=== PATIENT | female | born 1975 | race Caucasian/White ===

== ENCOUNTER 2023-09-27 10:14 | Outpatient (REF) | payer BC, SELFPAY ==
[2023-09-27 15:00] LABS: Estimated Average Glucose 105 mg/dL; Hemoglobin A1c % 5.3 % (<6.0)
[2023-09-27 15:09] LABS: Cholesterol 306 mg/dL (<200); HDL Cholesterol 34 mg/dL (>40); Triglycerides 651 mg/dL (<150)
[2023-09-27 15:24] LABS: TSH reflex Free T4 0.72 uIU/mL (0.32-4.0); Vitamin D 25-OH Total 44.6 ng/mL (>30)
== END 2023-09-27 10:15 | disposition home or self-care (01) ==
LOC: HO.CHCLDS 10:14
PROVIDERS: Visit Provider Pediatrics
DX: D64.9 Anemia, unspecified (principal); M06.09 Rheumatoid arthritis without rheumatoid factor, multiple sites; E78.2 Mixed hyperlipidemia; R63.5 Abnormal weight gain
CPT/HCPCS: 36415; 80061; 82306; 83036; 84443

== ENCOUNTER 2024-02-09 11:42 | Outpatient (REF) | payer BC, SELFPAY ==
[2024-02-09 14:57] LABS: Prothrombin Time 12.7 SEC (11.1-13.3)
== END 2024-02-09 11:43 | disposition home or self-care (01) ==
LOC: HO.CHCLDS 11:42
PROVIDERS: Visit Provider Pediatrics
DX: Z01.812 Encounter for preprocedural laboratory examination (principal)
CPT/HCPCS: 36415; 85610

== ENCOUNTER 2024-12-28 10:09 | Outpatient (REF) | payer BC, SELFPAY ==
--- OUTSIDE RECORDS SUMMARY | 2024-12-28 10:59 | XMS_ITS | Data Portability ---
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 Plan of Treatment Reminders Order Date Submit Date Provider Last Modified By Organization Details Last Modified Time Details Appointments ANNUAL WINDOW CASER 15 2024 02:45P M Kassandra Mitchell MD Not available Not available Not available Lab pap, IG + HPV 2023 024 [facility], [address] [place] [address], [id number] 07/30/2024 08:55:00 pap, IG + HPV 2023 024 [email or web address] [facility], [address] [place] [address], [id number] 02/02/2024 08:14:08 surgical pathology study - ECC,cervi joanne bx @ 12:00 and 3:00 2022 023 [email or web address] [facility], [address] [place] [address], [id number] 07/07/2023 08:52:10 test, urine 2022 023 In-Office Order, Internal Use Only DO Not Attach Compendium DO Not Attach Compendium, Do Not Delete/merge, [id number] 06/30/2023 12:44:10 surgical pathology study - EBx 2022 023 [facility] Lab, [address] [place] [address], [id number] 07/01/2023 17:40:29 Referral None recorded. Procedures None recorded. Surgeries None recorded. Imaging None recorded. Medication Orders None recorded. Patient TargetsNo targets recorded. Patient Instructions Encounter Date Encounter Id Patient Instructions Last Modified By Organization Details Last Modified Time 01/10/2024 [id number] tips to help you stay healthy Not available 01/10/2024 13:03:43 [facility] screening completed and reviewed with patient. Negative findings. Not available 01/10/2024 13:03:16 02/10/2024 [id number] Behavioral healt h screening completed and reviewed with patient. Negative findings. [email or web address] Not available 02/10/2024 09:36:51 Reason for Referral None Reported. Results Created Date Observation Date Name Description Value Unit Range Abnormal Flag Note LastModifiedBy Organization Detail LastModifiedTime 06/20/2006/20/2023 HPV MRNA E6/E7 HPV MRNA E6/E7 Negati ve negati ve APTIM A HPV assay detec ts 14 high risk HPV types (HPV 16,18 ,31,3 3,35, 39,45 ,51,5 2,56, 58,59 ,66,6 8). The assay is FDA appro elizabeth for testi ng ThinP rep liqui d Pap vials but not FDA appro elizabeth for detec ting HPV in SureP ath liqui d Pap speci mens. In-ho use valid ation has shown the assay can detec t all [facility] types [facility] Not Available [facility] [address] [place] [address], [id number] 06/24/2023 10:45:18 06/20/2006/20/2023 THINP REP PAP TEST (IMAG ER), HPV SCREE N, REFLE X HPV 16,18 /45 report Report abnormal Final Gynec ologi joanne Cytol ogy Repor t ----- ----- ----- ----- ----- ----- ----- ----- ----- ----- ----- ----- ThinP rep Pap Test, HPV Scree n, Refle x HPV Genot ype SPECI MEN ADEQU ACY: SATIS FACTO RY FOR EVALU ATION ; ENDOC ERVIC AL/TR ANSFO RMATI ON ZONE COMPO NENT PRESE NT. INTER PRETA TION: ATYPI JOANNE GLAND ULAR CELLS Tubal metap lasia Elect paul Lopez d: Megha Hines [place] ([facility] ) Elect paul Lopez d: Kayla Cooper MD Elect paul Lopez d: LEEANNA LARSEN RET, MD ----- ----- ----- ----- ----- ----- ----- ----- ----- ----- ----- ----- CLINI JOANNE INFOR MATIO N: LMP: 06/02 Clini joanne Histo ry: RTN Biops y Date: NG Speci men Sourc e: Cervi x, Endoc ervix Previ ous Pap Date: NG HPV RESUL TS: HPV mRNA E6/E7 07392 [id number] Appro elizabeth: 06/22 Negat joel REF RANGE : Negat joel CPT Codes : 40826 , 58545 ICD Codes : N93.9 Not Available [facility] [address] [place], [address] 06/24/2023 10:45:25 06/20/2006/20/2023 TISSU E report Report Final Patho logy Repor t ----- ----- ----- ----- ----- ----- ----- ----- ----- ----- ----- ----- FINAL DIAGN OSIS: CERVI JOANNE BIOPS Y: - FRAGM ENTS OF ENDOC ERVIC AL AND SQUAM OUS EPITH ELIUM CONTA INING CHRON IC INFLA MMATI ON WITH REACT JOEL BYRNES E AND FOCAL TUBAL METAP LASIA . - NEGAT JOEL FOR DYSPL ELISA OR NEOPL ELISA. Comme nt: The findi ngs corre late with the concu rrent Pap smear , [id number], inter prete d as atypi joanne gland ular cells with tubal metap lasia . The react joel/m etapl astic cells in the curre nt biops y could expla in the atypi joanne cells seen in that Pap smear . Clini joanne follo wup recom erik sylvester. The case is revie wed by Dr. Leeanna sylvester, who concu rs. Elect paul sylvester: Kayla Cooper MD Elect paul Lopez d: LEEANNA LARSEN RET, MD ----- ----- ----- ----- ----- ----- ----- ----- ----- ----- ----- ----- Clini joanne Diagn osis and Histo ry: Abnor mal uteri ne bleed ing Gross Descr iptio n: Conta iner label ed with the patie nt's name ESCOBAR RON noted CXBX. Speci men is recei elizabeth in forma allyn and consi sts of irreg ular tissu e fragm ents admix ed with mucus and blood measu ring 0.13 cc which are filte red and submi tted in toto in 1 casse tte(s ) label ed 1A. The speci men may not survi ve proce ssing . CPT Codes : 51775 ICD Codes : N93.9 Not Available [facility] [address] [place], [address] 06/24/2023 16:01:38 06/20/2006/20/2023 pregn josé miguel test, urine Result negati ve Not Available In-Office Order Internal Use Only DO Not Attach Compendium DO Not Attach Compendium, Do Not Delete/merge, [id number] 06/17/2023 08:16:55 06/30/2006/30/2023 TISSU E report Report Final Patho logy Repor t ----- ----- ----- ----- ----- ----- ----- ----- ----- ----- ----- ----- FINAL DIAGN OSIS: #1- ENDOC ERVIC AL CURET TINGS : - SCANT FRAGM ENTS OF BENIG N ENDOC ERVIC AL GLAND ULAR EPITH ELIUM WITH REACT JOEL ATYPI A AND TUBAL METAP LASIA , NEGAT JOEL FOR DYSPL ELISA. #2- CERVI JOANNE BIOPS Y AT 12 [place] CK: - SCANT FRAGM ENTS OF BENIG N ENDOC ERVIC AL GLAND ULAR EPITH ELIUM WITH REACT JOEL ATYPI A AND TUBAL METAP LASIA , NEGAT JOEL FOR DYSPL ELISA. #3- CERVI JOANNE BIOPS Y AT 3 [address] CK: - FOCAL LOW GRADE SQUAM OUS INTRA EPITH ELIAL LESIO N/KIAH 1. #4- ENDOM ETRIA L BIOPS Y: - BENIG N ENDOC ERVIC AL MUCOS A WITH REACT JOEL BYRNES ES AND TUBAL METAP LASIA . - NO ENDOM ETRIU M PRESSheyla NT. Elect paul Lopez d: ART GONSALEZ SA, MD ----- ----- ----- ----- ----- ----- ----- ----- ----- ----- ----- ----- Clini joanne Diagn osis and Histo ry: COLPO SCOPY ; ECC,C ERVIC AL BX @ 12:00 AND 3:00 ; COLPO SCOPY ; EMBX Abnor mal vagin al pap smear Gross Descr iptio n: #1- Conta iner label ed with the patie nt's name RON DEAN noted ECC. Speci men is recei elizabeth in forma allyn and consi sts of irreg ular tissu e fragm ents admix ed with mucus and blood measu ring 0.1 cc which are filte red and submi tted in toto in 1 casse tte(s ) label ed 1A. The speci men may not survi ve proce ssing . #2- Conta iner label ed with the patie nt's name RON DEAN noted CXBX @12:0 0- COLPO . Speci men is recei elizabeth in forma allyn and consi sts of 1 piece of soft paz tissu e fragm ent measu ring 0.1 x 0.05 x 0.05 cm which is submi tted in toto in 1 casse tte(s ) label ed 2A. The speci men may not survi ve proce ssing . #3- Conta iner label ed with the patie nt's name NYDIA DEANI A noted CXBX @3:00 - COLPO . Speci men is recei elizabeth in forma allyn and consi sts of 2 piece s of soft paz tissu e fragm ents measu ring 0.4 x 0.3 x 0.2 cm and 0.2 x 0.1 x 0.1 cm which are submi tted in toto in 1 casse tte(s ) label ed 3A. #4- Conta iner label ed with the patie nt's name MISAEL Haji TRICI A noted EMB. Speci men is recei elizabeth in forma allyn and consi sts of irreg ular tissu e fragm ents admix ed with mucus and blood measu ring 0.5 cc which are filte red and submi tted in toto in 1 casse tte(s ) label ed 4A. CPT Codes : #1- 89216 #2- 19391 #3- 05874 #4- 66120 ICD Codes : #1- R87.6 29 #2- R87.6 29 #3- R87.6 29 #4- R87.6 29 Not Available [facility] [address] [place], [address] 07/01/2023 17:40:29 06/30/20 23 06/30/2023 pregn josé miguel test, urine Result negati ve Not Available In-Office Order Internal Use Only DO Not Attach Compendium DO Not Attach Compendium, Do Not Delete/merge, [id number] 06/30/2023 10:46:42 07/23/20 24 07/23/2024 THINP REP PAP TEST (IMAG ER), HPV SCREE N, REFLE X HPV 16,18 /45 report Report Final Gynec ologi joanne Cytol ogy Repor t ----- ----- ----- ----- ----- ----- ----- ----- ----- ----- ----- ----- ThinP rep Pap Test, HPV Scree n, Refle x HPV Genot ype SPECI MEN ADEQU ACY: SATIS FACTO RY FOR EVALU ATION ; ENDOC ERVIC AL/TR ANSFO RMATI ON ZONE COMPO NENT PRESE NT. INTER PRETA TION: NEGAT JOEL FOR INTRA EPITH ELIAL DUCJARAD Metz OR JATIN AMADOR . Elect paul Lopez d: Marquise Espinal CT ([facility] ) Elect paul Lopez d: Oliver Alvarez, [place]( [facility]) ----- ----- ----- ----- ----- ----- ----- ----- ----- ----- ----- ----- CLINI JOANNE INFOR MATIO N: LMP: NG Clini joanne Histo ry: NG Biops y Date: NG Speci men Sourc e: Cervi x, Endoc ervix Previ ous Pap Date: NG HPV RESUL TS: HPV mRNA E6/E7 04976 96084 Appro elizabeth: 07/25 Negat joel REF RANGE : Negat joel CPT Codes : 20943 ICD Codes : R87.6 10 Not Available [facility] [address] [place], [address] 07/30/2024 08:55:00 07/23/20 24 07/23/2024 HPV MRNA E6/E7 HPV MRNA E6/E7 Negati ve negati ve APTIM A HPV assay detec ts 14 high risk HPV types (HPV 16,18 ,31,3 3,35, 39,45 ,51,5 2,56, 58,59 ,66,6 8). The assay is FDA appro elizabeth for testi ng ThinP rep liqui d Pap vials but not FDA appro elizabeth for detec ting HPV in SureP ath liqui d Pap speci mens. In-ho use valid ation has shown the assay can detec t all HPV types from this sourc e Not Available [facility] [address] [place], [address] 07/30/2024 08:55:04 06/28/20 23 06/28/2023 US, trans vagin al RAD [email or web address] [facility] [address], [place], [address], 06/29/2023 10:16:33 01/13/20 24 01/13/2024 MAMMO , scree sulema, digit al, bilat eral, w/ CAD No observ ation record ed. [email or web address] [facility] [address], [place], [address], 01/17/2024 09:33:47 01/26/20 24 01/26/2024 MAMMO , diagn ostic , digit al, unila teral No observ ation record ed. [email or web address] [facility] [address], [place], [address], 01/30/2024 11:18:13 08/06/20 24 08/06/2021 MAMMO , diagn ostic , tomos ynthe sis, unila teral No observ ation record ed. [facility] [address], [place], [address], 08/07/2024 01:36:07 09/06/20 24 08/06/2024 MAMMO , diagn ostic , digit al, unila teral No observ ation record ed. [email or web address] [address], [place], [address], 09/13/2024 11:39:42 Result Notes None recorded. Problems Name Problem SNOMED Code Status Onset Date Resolution Date Notes Provider Name and Address Organization Details Recorded Time Asthma 030689568 Active 018 Ann Peña null, [place] - [facility] 8 14:33:59 Acid reflux 095614206 Active 018 Ann Peña null, [place] - [facility] 8 14:34:06 Anxiety 14590894 Active 018 Ann Peña null, [place] - [facility] 8 14:34:17 Anemia 422406537 Active 018 Ann Peña null, [place] [facility] 8 14:34:52 Problem Notes None recorded. Procedures Surgical History Date Name Laterality Status Provider Name and Address Organization Details Recorded Time 06/30/20 Colposcopy Procedure Note completed KASSANDRA MITCHELL MD [address] [facility], [place], [address], [facility] 06/30/2023 11:20:12 06/30/20 Endometrial Biopsy Procedure Note completed KASSANDRA MITCHELL MD [address] [facility], [place], [address], [facility] 06/30/2023 11:21:21 06/20/20 Cervical Polypectomy Procedure Note completed KASSANDRA MITCHELL MD [address] [facility], [place], [address], [facility] 06/20/2023 21:42:53 06/20/20 Date of Last Pap Smear completed Sanjiv Norman [facility] 06/20/2023 13:15:20 extraction of wisdom tooth completed KASSANDRA MITCHELL MD [address] [facility], [place], [address], [facility] 06/20/2023 21:30:45 Hysteroscopy completed KASSANDRA MITCHELL MD [address] [facility], [address] [place] [address], [place], [address], [facility] 07/23/2024 15:01:50 Imaging Results Imaging Date Name Status LastModified by Organization Details LastModified Time 06/28/2023 US, transvaginal completed [address] [facility] [address], [place], [address], 06/29/2023 10:16:33 01/13/2024 MAMMO, screening, digital, bilateral, w/ CAD completed [address] [facility] [address], [address], 01/17/2024 09:33:47 01/26/2024 MAMMO, diagnostic, digital, unilateral completed [email or web address] [facility] [address], [place], [address], 01/30/2024 11:18:13 08/06/2021 MAMMO, diagnostic, tomosynthesis, unilateral completed [facility] [address], [place], [address], 08/07/2024 01:36:07 08/06/2024 MAMMO, diagnostic, digital, unilateral completed [email or web address] [facility] [address], [place], [address], 09/13/2024 11:39:42 Procedure Notes None recorded. Medical Equipment None Reported. Allergies Allergen ID Allergen Name Allergen Category Reaction Reaction Severity Criticality Documentation Date Start Date Code Code System Note Provider Name and Address Organization Details Recorded Time 6789853 Product containin g penicilli n (product) medicatio n Not available Not available Not available 05/04/2018 60125 8001 SNOMED Ann Peña null, [facility] 8 14:31:32 6509683 wheat gluten extract food Not available Not available Not available 05/04/2018 94211 81 RxNorm Ann Peña null, [facility] 8 14:31:38 3598340 nut - unspecifi ed food Not available Not available Not available 05/04/2018 36936 UNK Ann Peña null, [facility] 8 14:31:48 9759502 tomato allergeni c extract food Not available Not available Not available 05/04/2018 27504 9 RxNorm Ann Peña null, [facility] 8 14:31:53 3700237 amlodipin e medicatio n Not available Not available Not available 06/20/2023 21767 RxNorm Sanjiv Norman null, [facility] 3 13:13:03 Medications Name Sig Start Date Stop Date Status Note LastModified by Organization Details LastModified Time clindamycin HCl 300 mg capsule 05/04 completed Not Available Not Available Not Available benzonatate 200 mg capsule TAKE 1 CAPSULE BY MOUTH THREE TIMES A DAY NEEDED FOR COUGH 02/09 completed Not Available Not Available Not Available prednisone 20 mg tablet TAKE 1 TABLET BY MOUTH 2 TIMES A DAY. WITH FOOD. active Not Available Not Available No t Available leflunomide 20 mg tablet Take 1 tablet every day by oral route. active Not Available Not Available No t Available dexamethaso ne 4 mg tablet 05/04 completed Not Available Not Available Not Available lisinopril 10 mg tablet Take 1 tablet every day by oral route. active Not Available Not Available No t Available Provera 10 mg tablet Take 1 tablet every day by oral route for 10 days. 2023 active Not Available Not Available Not Avai lable albuterol sulfate HFA 90 mcg/actuati on aerosol inhaler INHALE 2 PUFFS EVERY 4 HOURS NEEDED FOR WHEEZING OR SHORTNESS OF BREATH 02/09 completed Not Available Not Available Not Available rosuvastati n 10 mg tablet active Not Available Not Available Not Available rosuvastati n 20 mg tablet Take 1 mg every day by oral route. 02/09 completed Not Available Not Available Not Available cyanocobala min (vitamin B-12) 06/17 completed Not Available Not Available Not Available Vitamin D3 06/17 completed Not Available Not Available Not Available multivitami n 06/17 completed Not Available Not Available Not Available Flonase Allergy Relief 06/17 completed Not Available Not Available Not Available Vitals Date Recorded Body height Body mass index (BMI) Body weight Systolic blood pressure Diastolic blood pressure Provider Name and Address Organization Details Last Updated DateTime 06/30/2023 161.29 cm 31 kg/m2 42244.44 g 140 mm[Hg] 98 mm[Hg] Kayla CISSE - [facility] 10:41:38 Date Recorded Body height Body mass index (BMI) Body weight Systolic blood pressure Diastolic blood pressure Provider Name and Address Organization Details Last Updated DateTime 01/10/2024 161.29 cm 31.6 kg/m2 56517.22 g 110 mm[Hg] 82 mm[Hg] Kayla Vaughney [facility] 4 08:32:10 Date Recorded Body height Body mass index (BMI) Body weight Systolic blood pressure Diastolic blood pressure Provider Name and Address Organization Details Last Updated DateTime 02/10/2024 161.29 cm 32.3 kg/m2 41688.59 g 118 mm[Hg] 72 mm[Hg] Sanjiv Norman [facility] 4 14:36:51 Date Recorded Body height Body mass index (BMI) Body weight Systolic blood pressure Diastolic blood pressure Provider Name and Address Organization Details Last Updated DateTime 03/06/2024 161.29 cm 31.4 kg/m2 76433.63 g 120 mm[Hg] 76 mm[Hg] Kayla Homero [facility] 4 13:25:27 Date Recorded Body height Body mass index (BMI) Body weight Systolic blood pressure Diastolic blood pressure Provider Name and Address Organization Details Last Updated DateTime 07/23/2024 161.29 cm 33.9 kg/m2 62567.72 g 122 mm[Hg] 74 mm[Hg] Rush Motley [facility] 4 14:30:41 Social History Question Answer Notes LastModified by Organization Details LastModified Time Tobacco Smoking Status Never Smoker Ann saez, [facility] 05/04/2018 14:36:38 What Is Your Level Of Alcohol Consumption? Occasional Information not available 05/04/2018 Is Blood Transfusion Acceptable In An Emergency? No Unable To Accept Transfustions - JW Information not available 05/04/2018 What Is Your Occupation? [employer] Information not available 05/04/2018 Have There Been Any Changes To Your Family Or Social Situation? No Information not available 05/04/2018 Do You Have Any Children? Yes Information not available 05/04/2018 Does Your Partner Physically Hurt You Or Threaten To Hurt You? No Information not available 05/04/2018 Has Your Partner Forced You To Have Sex Or Perform Sex Acts When You Did Not Want To? No Information not available 05/04/2018 Does Your Partner Insult, Scream At Or Talk Down To You? No Information not available 05/04/2018 Does Your Partner Control You Or Any Part Of Your Life? No Information not available 05/04/2018 Are You Afraid Of Your Partner? No Information not available 05/04/2018 Drug Use? No Information not available 05/04/2018 Do You Feel Safe At Home? Yes Information not available 05/04/2018 What Was The Date Of Your Most Recent Tobacco Screening? 06/20/2023 Information not available 06/20/2023 How Many Children Do You Have? 2 Information not available 05/04/2018 Do You Use Protection During Sex? Always Information not available 05/04/2018 Are You Sexually Active? Yes Information not available 06/20/2023 How Much Tobacco Do You Smoke? No Information not available 05/04/2018 Sex: Unknown Functional Status Question Answer Note LastModified by Organizat ion Details LastModified Time What is your exercise level? Moderate 3-5 days a week Information not available 05/04/2018 Mental Status Question Answer Note LastModified by Organization D etails LastModified Time Do you have difficulty concentrating, remembering or making decisions? No Information no t available 05/04/2018 Family History Relationship Description Onset Age of this Age Resolved Age Notes LastModified by Organization Details LastModified Time Paternal Grandmother Malignant tumor of colon Not available 2017 14:35:49 Paternal Grandmother Malignant tumor of soft tissue of hip Not available 2017 14:36:01 Paternal Grandmother Atrial fibrillation Not available 18:17:43 Paternal Grandmother Coronary arterioscler osis s/p Triple bypass Not available 05/05/2018 18:18:15 Mother Diabetes mellitus Not available 2017 14:36:09 Mother Myocardial infarction h/o [place] x 2 Not available 06/20/2023 21:31:16 Mother Atrial fibrillation Not available 20:12:21 Father Atrial fibrillation Not available 14:36:22 Maternal Grandmother Atrial fibrillation Not available 18:17:38 Maternal Grandmother Diabetes mellitus Not available 05/05 18:18:24 Maternal Grandmother Congenital heart disease Not available 05/05 18:18:38 Maternal Grandfather Hypertensive disorder Not available 05/05 18:19:06 Maternal Grandfather Cerebrovascu lar accident Not available 18:19:17 Paternal Grandfather Malignant tumor of prostate Not available 05/05 18:19:53 Unspecified Relation Malignant tumor of breast M Cousin , female Not available 05/05/2018 18:20:22 Medical History Condition Response Other N *No Diseases or Conditions N Blood clots N Breast Cancer N Benign breast disease N Colon cancer N Lung Disease N Depression N Defects or Inherited Disease N Anesthesia Complications N Headaches/Migraines Y Have you ever been on isolation N Anxiety Disorder Y Arthritis Y HSV N Infertility N Abnormal pap Y Interstitial Cystitis N Acid Reflux (GERD) Y Cancer N Stroke N Endometriosis N Fibromyalgia N Spina Bifida N HIV N Heart Problems N Sexual Dysfunction N Autoimmune disorder N Kidney or Bladder Problems Y Thyroid Problems Y GI Problems N Eating Disorder N Anemia Y Multiple Sclerosis N Psychiatric Illness N Ovarian Cancer N Diabetes N Blood Transfusions N Bladder disease N History of MRSA N Abnormal Uterine Bleeding N Hyperlipidemia Y BrCa positive N Diverticulitis N Abuse/Domestic Violence N Asthma Y Hepatitis N Hypertension Y Osteoporosis N Thrombophilias N Gynecological History Statement/Question Response Benign Breast Disease Y Flow Moderate Date of Last Mammogram Breast Biopsy N Date of LMP 07/02/2024 [facility] Biopsy N IPV Screen Done 01/10/2024 Post Menopausal Bleeding STIs/STDs N PID N Cervical Cancer N History of Endometrial Biopsy? N If Post Menopausal, Age at Menopause Ovarian Cancer N Date of Last Colonoscopy Breast Cancer N Date of last DEXA Bladder Problems N Abnormal Uterine Bleeding N Last HPV Result Positive Abnormal Pap Y Infertility N Breast Ultrasound Y Leep N Sexual Orientation heterosexual Colposcopy HPV Vaccine N Duration of Flow (days) 5 Endometriosis N Age at Menarche 10 Age at First Child 25 Fibroids N Uterine Cancer N Current Control Method Condoms Frequency of Cycle (Q days) 25 Sexually Active? Yes Sexual Problems? N Date of Last Pap Smear 06/20/2023 Hormone Replacement Therapy Obstetrics History GPAL:G 2 P 1 1 0 2 Type Value Full Term 1 Premature 1 Living 2 Total 2 Immunizations Vaccine Type Date Status Note Provider Champ haji and Address Organization Details Recorded Time COVID-19, mRNA, LNP-S, PF, 30 mcg/0.3 mL dose 12/22/2020 completed Sanjiv Norman null, [place] - [facility] 06/20/2023 13:12:43 COVID-19, mRNA, LNP-S, PF, 30 mcg/0.3 mL dose 01/12/2021 completed Caralywilda Norman null, [place] - [facility] 06/20/2023 13:12:43 COVID-19, mRNA, LNP-S, PF, 30 mcg/0.3 mL dose, ericka-sucrose 10/09/2021 completed Sanjiv Norman null, [place] - [facility] 06/20/2023 13:12:43 Tdap 08/30/2017 completed Sanjiv Norman null, [place] - [facility] 06/20/2023 13:12:43 Past Encounters Encounter ID Performer Location Encounter Start Date Encounter Closed Date Diagnosis/Indication Diagnosis SNOMED-CT Code Diagnosis ICD10 Code Diagnosis Note [id number] KASSANDRA MITCHELL MD [facility] [address] [place] [address] 05/04/2018 14:13:45 05/08/2018 08:18:26 Gynecologic examination 12201238 Z01.419 Nl WINDOW CASER exam Pap done w/ mandatory HPV Check MMG presently (exam nl today) RTO q 1 yr or prn Screening mammography 24 467129 Z12.31 Menorrhagia 221986955 N9 2.0 Pt describes single episode of DUB in 09/29; pt c/o ongoing heavy menses, indicates she is interested in eval/tx. Advised pt to have initial eval w/ USN, then consider further tx options pending findings. Pt agreeable to schedule USN in office. [id number] KASSANDRA MITCHELL MD [facility] [address] [place] [address] 06/20/2023 13:09:15 06/21/2023 09:51:23 Abnormal uterine bleeding [id number] 9100 N93.9 47 yo w/ h/o menorrhagi a presents for eval of worsening AUB over last >=10 months. Pt describes prolonged & heavy episodes of VB.Possibl e etiologies for sx's reviewed w/ pt at visit today. Pap collected at visit. Pt noted to have small cervical polyp as well, avulsed & sent to path; pt advised that polyp may have contribute d minimally to irregular VB, but is not likely to have been largely causative. Will await path.Revie wed possible contributi on of perimenopa usal changes to AUB. Also discussed possible structural causes, to include endometria l polyps or fibroids. Suggested pt have initial eval w/ USN. Pending results, might consider EBx vs HSC/D&C. Briefly discussed possible medical & surgical tx's pending results. pt agreeable to begin eval w/ USN. [id number] KASSANDRA MITCHELL MD WHG5 [address] [place] [address] 06/30/2023 10:32:56 06/30/2023 14:44:44 Abnormal vaginal Papanicolaou smear [id number] R87.629 47 yo returns for further eval of AUB & pap w/ MILAGROS/HPV negative. See HPI for summary of path & USN findings thus far. Colpo/ECC/ bx x 2 completed, also EBx. Pt had discomfort during procedure, near syncope post-proce dure. Await path--cons ider tx options pending results. Reviewed options IN BRIEF w/ pt. 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 At that time, pt reported experienci ng irregular episodes of VB, q 23-40 d, but lasting up to 14 d w/ heavy flow. Pt noted incidental ly to have cervical polyp, which was avulsed & sent to path; path revealed benign findings. Pt also had pap at that time which revealed MILAGROS w/ HPV negative; pathologis t did indicate that cervical polyp MIGHT have accounted for MILAGROS.Pt had further eval w/ USN in 07/04, revealing nl findings except multiple small intramural fibroids & heterogene ous appearance of endometriu m.Pt underwent colpo & EBx in 07/04. Colpo/ECC & bx x 2 revealed-- negative ECC & bx x 1, but LGSIL/KIAH I on 2nd bx. Surprising ly, despite lack of any difficulty performing EBx, path returned showing insufficie nt endometria l tissue. Pt was advised at that time to have further eval for etiology of AUB & MILAGROS on pap w/ HSC/D&C.To day, pt reports that due to large deductible w/ her insurance, this further w/u was cost-prohi bitive. Pt was unable to complete further w/u at that time. In interim, pt's insurance has changed & she now returns to pursue further eval as appropriat e. Pap compelted today w/ mandatory HPV. Will pursue further w/ pending results of pap. Depression screening [id number] Z13.31 Completed, results negative [id number] KASSANDRA MITCHELL MD WHG2 [address] [place] [address] 02/10/2024 13:58:37 02/21/2024 10:52:02 Pre-surgery evaluation [id number] Z01.818 48 yo presents for preop visit due to h/o AUB, as detailed in HPI. Pt w/ h/o heavy flow w/ menses since at least mid-30's, but developed add'l sx's of irregular & prolonged VB episodes ~ 1.5 yrs ago. Pt had w/u w/ USN 07/04 demonstrat ing heterogene ous endometriu m & multiple small intramural fibroids. Pt had eval w/ EBx 07/04, w/ path surprising ly showing inadequate endometria l sampling. Pt agreed to recommende d add'l eval w/ HSC/D&C, but was unable to proceed due to cost of procedure & limitation s of insurance coverage.P t returned in 01/03 for further eval of unchanged sx's. Pt now able to proceed w/ recommende d procedure. Technique of procedure itself reviewed in detail w/ pt; risks/bene fits of procedure also discussed at length. All questions answered. Consent then signed. Atypical s quamous cells of undetermined significance on cervical Papanicolaou smear [id number] R87.610 Pt reported h/o abnl pap in 2016 w/ prior provider; pt apparently had colpo at that time, w/ reportedly nl results.Pt had eval w/ pap 04/29, results NILM/HPV ngative.Pt had pap 07/04 revealing MILAGROS/HPV positive; colpo/bx/E CC 07/04 revealed negative path on ECC, & cervical bx w/ KIAH I. Pt was to have further eval w/ pap at annual exam 01/03, as it was at that time unclear what F/U pt might be able to complete. However, pap did not reach lab for eval. Will plan pap during current OR procedure. [id number] KASSANDRA MITCHELL MD WHG[address] [place] [address] 03/06/2024 13:07:32 03/07/2024 09:01:08 Postoperative visit [id number] Z48.89 Pt doing well, no sig post-op complicati ons observed at visit today.Revi ewed uneventful surgical procedure & benign path w/ pt. Pt describes light but somewhat prolonged post-op bleeding. Pt reports that using her FitBit alina, she has found that menses had generally been occurring ~ q 45 d. Pt is troubled by heavy VB as well as sx's of hot flashes & weight gain, & she has ?'d perimenopa usal status. Discussed that this may be causative for her sx's. REviewed possible options going forward to improve bleeding profile. Reviewed obs alone for improvemen t in sx's after D&C; reviewed use of OCP's vs other BC methods to control heavy VB, & discussed that some of these options might improve perimenopa usal sx's.Also briefly discussed other surgical options pending bleeding profile going forward.Pt does mention that she has had issues w/ her thyroid is past, including large thyroid cyst that was ?bx'd & drained, w/ benign path. Pt states her TFT's have been ??marginal , but in nl range. Pt has not had recent F/U for thyroid dz. Discussed w/ pt that abnl w/ thyroid fxn might be contributi ng to multiple sx's she describes above. Suggested that pt have re-eval w/ her prior endocrinol ogist. If TFT's are adjusted & sx's improve, will plan obs alone. If TFT's are WNL, pt to consider further possible tx w/ BC methods. Pt seemingly most leaning toward use of OCP's. Atypical g landular cells on cervical Papanicolaou smear [id number] R87.619 Pt had prior eval w/ pap in 07/04 demonstrat ing MILAGROS/HPV negative. Colpo/ECC/ EBx in 07/04 was not revealing for cervical dz, but EBx showed insufficie nt tissue. Further eval w/ HSC/D&C was planned at that time, but pt's insurance made procedure cost-prohi bitive. Pt was lost to F/U until 01/03, when she returned for annual exam. As it was not clear at that time what F/U might be completed, a pap was performed at 01/03 visit, but apparently did not reach lab. Pap was completed in OR in 03/05, w/ results NILM, although no cotesting w/ HPV was done. Will plan that pt RTO for pap & HPV cotesting in ~ 4-6 mo. [id number] KASSANDRA MITCHELL MD WHG[address] [place] [address] 07/23/2024 14:15:51 07/23/2024 15:08:57 Atypical squamous cells of undetermined significance on cervical Papanicolaou smear [id number] R87.610 Pt reported h/o abnl pap in 2016 w/ prior provider; pt apparently had colpo at that time, w/ reportedly nl results.Pt had eval w/ pap 04/29, results NILM/HPV ngative.Pt had pap 07/04 revealing MILAGROS/HPV positive; colpo/bx/E CC 07/04 revealed negative path on ECC, & cervical bx w/ KIAH I. Pt was to have further eval w/ pap at annual exam 01/03, as it was at that time unclear what F/U pt might be able to complete. However, pap did not reach lab for eval. Pap was then done at time of HSC/D&C in 03/05, but co-testing w/ HPV was not completed. Pap w/ mandatory HPV completed today. Plan further eval pending results. Health Concerns Section Related Observation LastModified by Organization Detai ls LastModified Time None Recorded Concern Status LastModified by Organization Details LastModified Time None Recorded Advance Directives Directive None Recorded Payers Encounter Date Sequence Insurance Name Policy Number Policy Contreras Covered Member ID Contreras Member ID Guarantor Name 06/30/2023 1 [facility] [id number] Bonita Queen [id number] Bonita Queen 01/10/2024 1 [employer] Bonita Queen [id number] Bonita Queen 02/10/2024 1 [employer] Bonita Queen [id number] Bonita Queen 03/06/2024 1 [employer] Bonita Queen [id number] Bonita Queen 07/23/2024 1 [employer] Bonita Queen [id number] Bonita Queen Notes Date Note Type Note Provider Name and Address Organization Details Recorded Time 06/30/2023 text/html 47 yo returns fo r further eval of recent AUB. Pt had pap at visit in 07/04 showing MILAGROS/HPV negative; cervical polyp avulsed at same time showed tubal metaplasia, benign changes which pathologist noted might correlate/account for pap findings.Pt also had eval w/ USN 07/04 revealing multiple small intramural fibroids & heterogeneous endometrial lining.Pt returns for eval w/ colpo/bx/ECC & EBx. 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 Pt continues to note sx's of irregular VB--since prior eval in 07/04, pt reports menses have occurred q 3-11 wks x <=10 d. Pt denies having VB < q 21 d. Pt reports occas heavy flow, soaks overnight pads up to q 2 hrs. Pt has not had IMB; pt does note + dysmenorrhea, somewhat relieved w/ use of Tylenol & heat.Pt presently denies /UTI sx's.Pt has not had recent MMG, ? last 2020. KASSANDRA MITCHELL MD [address] [place] [address], [address] Floor, [place], [address], [facility] 01/10/2024 13:03:46 02/10/2024 text/html 48 yo presents for pre-op eval. Pt has intermittently presented for eval of AUB over last ~ 6 yrs. Pt was seen in 04/29 w/ report of menses which occurred predictably ~ q 4 wks x 5-6 d w/out IMB or dysmenorrhea. Pt did c/o heavy flow, soaking 6-7X/d; pt had had single episode of q 2 wk VB in 09/29. Pt was advised to have further initial eval w/ USN, but was lost to F/U.Pt was next seen in 07/04, at which time she described she had experienced heavy VB x ~ 15 yrs. Pt reported that since ~ 10/04, irregular VB had occurred. Pt had episodes of bleeding q 23-40 d, 7-14 d, occas x 2-3 wks. VB was heavy, soaking up to q 2 hrs w/ fifty-cent sized clots. Pt reported having occas accidents . Pt denied IMB, but noted + dysmenorrhea, somewhat relieved w/ use of Tylenol & heat.Pt had eval w/ pap at that time, revealing MILAGROS/HPV positive. Exam revealed a small cervical polyp, which was avulsed & shown to have negative path.Pt had eval w/ USN 07/04, revealing: nl size AV uterus, 7.4 x 4.4 x 4.4 cm; SLT~=0.6 cm, w/ heterogeneous appearance of endometrium; nl-appearing ovaries bilaterally; multiple small intramural fibroids, ~ 1.7-2.2 cm in size.Pt underwent further eval in 07/04 w/ colpo/ECC/Bx & EBx. Path revealed negative ECC & bx w/ LGSIL/KIAH I; although EBx was not difficult to obtain, & specimen was felt to be adequate, path revealed no endometrial tissue in specimen. Pt was advised to have further eval w/ HSC/D&C, & surgery was planned. However, pt found procedure to be cost-prohibitive & was lost to F/U thereafter until 01/03.Upon return for care in 01/03, pt reported cont'd episodes of AUG. Pt reported menses occurring q 3-11 wks x <= 10 d w/out IMB. Pt reported heavy flow, soaking overnight pads up to q 2 hrs w/ unchanged dysmenorrhea. Pt reported having had change in insurance, & she desired to proceed w/ previously recommended surgery. KASSANDRA MITCHELL MD [address] [place] [address], [address] [place], [address], [facility] 02/18/2024 22:59:32 03/06/2024 text/html 48 yo presents ~ 2 wks s/p HSC/D&C for PMB. Pt reports feeling poorly from the anesthesia for first few days post-op, stayed out of work on day after surgery. Pt reports she accidentally rubbed her L eye apparently after toughing scopolamine patch behind L ear, experienced dilatation of L pupil & visual changes that resolved. Pt had mod cramping initially which resolved. Pt reports she had VB which was not heavy, but was prolonged post-op; pt used Provera pre-op to avoid VB at time of OR.Pt denies F/C/UTI or sx's. KASSANDRA MITCHELL MD [address] [facility], 3rd Floor, [place], [address], [facility] 03/06/2024 18:21:06 07/23/2024 text/html 48 yo presents f or F/U of MILAGROS previously seen on pap. Pt had eval w/ pap at time of HSC/D&C in 03/05. However, pap did not include HPV co-testing. Pt today presents for F/U pap. KASSANDRA MITCHELL MD [address] [place] [address], [address] Floor, [place], [address], [place] [facility] 07/23/2024 15:05:30 OBGyn Episode Ob Episode Information Episode Created Date Number of Fetuses Patient Bloodtype Patient rh Status Prepregnancy Weight lbs Domestic Partner Domestic Partner Phone Father Name Shoe Salesperson Status 05/04/20 18 1 CLOSED Fetus Data First Name Last Name Admitted to NICU Weight (g) Sex Living Outcome Pediatric Complications Fetus ID Race Codes Race Delivery Type 4507.34 3704 M Full Term [id number] Vaginal Delivery Iban Calculation Initial Iban Date Initial Exam Date Initial Exam Provider Initial Ultrasound Date Last Menstrual Period Date Ultra Sound Weeks Gestation 0 Eighteen To Twenty Week Iban Update Ultra Sound Date Fundal Height At Umbil Quickening Date Ultra Sound Latest Weeks Gestation Final Iban Confirmed By Final Iban Confirmed Date Final Iban Date Ultra Sound Latest Days Gestation 0 0 Menstrual History Last Menstrual Date Menses Monthly On Bcp Conception Prior Menses Frequency Hcg Plus Date Menarche Onset Age Delivery Information Delivery Date Delivery Type Labor Anesthesia Weeks Gestation Incision Type Labor Labor Length Hrs Delivered By Post Complications Tubal Sterilization Discharge Date Comments 4 40 false Discharge Information Feeding Method Contraceptive Method Maternal HG B and HCT Levels Ob Episode Information Episode Created Date Number of Fetuses Patient Bloodtype Patient rh Status Prepregnancy Weight lbs Domestic Partner Domestic Partner Phone Father Name Shoe Salesperson Status 05/04/20 18 1 CLOSED Fetus Data First Name Last Name Admitted to NICU Weight (g) Sex Living Outcome Pediatric Complications Fetus ID Race Codes Race Delivery Type 3061.74 6 F Prematur e [id number] Vaginal Delivery Iban Calculation Initial Iban Date Initial Exam Date Initial Exam Provider Initial Ultrasound Date Last Menstrual Period Date Ultra Sound Weeks Gestation 0 Eighteen To Twenty Week Iban Update Ultra Sound Date Fundal Height At Umbil Quickening Date Ultra Sound Latest Weeks Gestation Final Iban Confirmed By Final Iban Confirmed Date Final Iban Date Ultra Sound Latest Days Gestation 0 0 Menstrual History Last Menstrual Date Menses Monthly On Bcp Conception Prior Menses Frequency Hcg Plus Date Menarche Onset Age Delivery Information Delivery Date Delivery Type Labor Anesthesia Weeks Gestation Incision Type Labor Labor Length Hrs Delivered By Post Complications Tubal Sterilization Discharge Date Comments 1 36 true Discharge Information Feeding Method Contraceptive Method Maternal HG B and HCT Levels
--- OUTSIDE RECORDS SUMMARY | 2024-12-28 10:59 | XMS_ITS | Clinical Summary ---
Author Organization [facility] it Address [address] [place] [address] Care Team Providers Care Hydrogen Power Plant Manager Name Role Phone Flor Gomez MD Primary Care Provider [phone] Immunizations Name Administration Dates Next Due Pfizer SARS-CoV-2 COVID-19, mRNA, LNP-S, preservative free 10/09/2021 Surgical History Surgery Date Site/Laterality Comments WISDOM TOOTH EXTRACTION PROCEDURE:WISDOM TOOTH EXTRACTION HYSTEROSCOPY 02/22/2024 N/A PROCEDURE:HYSTEROSCOPY;COMMENT:Proc edure: HYSTEROSCOPY/DILATION/CURETTAGE/ PAP SMEAR; Surgeon: Barbra Abdi MD; Location: [facility]; Service: Gynecology; Laterality: N/A; Medical History Medical History Date Comments Slow to wake up after anesthesia DX:Slow to wake up after anesthesia;COMMENT:self reported re: wisdom teeth Osteoarthritis DX:Osteoarthriti s Rheumatoid arthritis (CMS/HC C V24, CMS/HCC V28) DX:Rheumatoid arthritis (HCC ) Hyperlipidemia DX:Hyperlipidemi a GERD (gastroesophageal reflux disease) DX:GERD (gastroesophageal reflux disease) Seasonal allergies DX:Seasonal a llergies Gluten free diet DX:Gluten free diet Hypertension DX:Hypertension Sleep apnea, obstructive DX:Slee p apnea, obstructive;COMMENT:mild; no treatment ordered Migraine headache DX:Migraine he adache Anxiety DX:Anxiety Depression DX:Depression HL (hearing loss) DX:HL (hearing loss);COMMENT:recurrent ear infections in childhood Anemia DX:Anemia Social History Tobacco Use Types Packs/Day Years Used Date Smoking Tobacco: Never Smokeless Tobacco: Never Alcohol Use Standard Drinks/Week Comments Yes 0 (1 standard drink = 0.6 oz pur e alcohol) Comments Unknown Sex and Gender Information Value Date Recorded Sex Assigned at Not on file Legal Sex Female 12:57 AM EST Gender Identity Not on file Sexual Orientation Not on file Obstetrics History Plan of Treatment Health Maintenance Due Date Last Done Comments Breast Cancer Screening 1974 DTaP,Tdap,and Td Vaccines (1 - Tdap) 1993 Hepatitis B Vaccines (1 of 3 - 19+ 3-dose series) 1993 COVID-19 Vaccine (4 - 2023-2 5 season) 2024 10/09/2021, 01/12/2021, 12/22/2020 Colorectal Cancer Screening: Colonoscopy 06/25/2024 Depression Screening 06/25/2024 HIV Screening 06/25/2024 Hepatitis C Screening 06/25/2024 Social Influencers of Health Screening 06/25/2024 Pneumococcal Vaccine: 50+ Years (1 of 1 - PCV) 2024 Zoster Vaccines (1 of 2) 2024 Influenza Vaccine (Season Ended) 2025 Cervical Cancer Screening: P ap Smear 02/21/2027 02/22/2024 HIB Vaccines Aged Out No longer eligi ble based on patient's age to complete this topic HPV Vaccines Aged Out No longer eligi ble based on patient's age to complete this topic Hepatitis A Vaccines Aged Out No long er eligible based on patient's age to complete this topic IPV Vaccines Aged Out No longer eligi ble based on patient's age to complete this topic MMR Vaccines Aged Out No longer eligi ble based on patient's age to complete this topic Meningococcal ACWY Vaccine Aged Out N o longer eligible based on patient's age to complete this topic Meningococcal B Vaccine Aged Out No l onger eligible based on patient's age to complete this topic Pneumococcal Vaccine: Pediatrics (0 to 5 Years) and At-Risk Patients (6 to 64 Years) Aged Out No longer eligible b ased on patient's age to complete this topic RSV Immunization Patients Under 20 months Aged Out No longer eligible b ased on patient's age to complete this topic Varicella Vaccines Aged Out No longer eligible based on patient's age to complete this topic Procedures Procedure Name Priority Date/Time Associated Diagnosis Comments PAP SMEAR Routine 02/22/2024 12:00 AM EDT from Last 3 Months or Most Recently Relevant to Health Maintenance Results * Pap smear (02/22/2024 12:00 AM EDT) Case Results Patient Name: DALLIN CODY MR#: [id number] Collected Date: 02/22/2024 Reported Date: 02/28/2024 Specimen #[id number] Final Diagnosis Satisfactory for evaluation. ??Endocervical transformation zone component present. Negative for Intraepithelial Lesion or Malignancy. Clinical Diagnosis N93.9 R87.618 Source: A: ThinPrep Imaged Pap Cervical-DX Electronically Signed Out By JENARO Hull(ASCP) Note: The Pap test is a screening test with an inherent false negative rate. Automated prescreening of all liquid based specimens is performed by the ThinPrep Imaging System unless otherwise stated. Test Performed by: [address] ??[id number] Luna Foster M.D., Director HISTORICAL TESTING LAB RESULTING AGENCY 02/22/2024 us Barbra Abdi MD LAB CYTOLOGY ORDERABLES Edit ed Result - Final HISTORICAL TESTING LAB RESULTING AGENCY from Last 3 Months or Most Recently Relevant to Health Maintenance Care Teams Hydrogen Power Plant Manager Relationship Specialty Start Date End Date Flor Gomez MD [address] [place] [phone] PCP - General 02/20/24
--- OUTSIDE RECORDS SUMMARY | 2024-12-28 10:59 | XMS_ITS | Encounter Summary ---
Author Organization [facility] Address [address] [place] [address] Care Team Providers Care Carbonation Equipment Operator Name Role Phone Flor Gomez MD Primary Care Provider [phone] Encounter Details Date Type Department Care Team ([facility] st Contact Info) Description 11/21/2024 Orders Only [facility] [address] [place] [address] ProviderAlonzo MD Social History Tobacco Use Types Packs/Day Years Used Date Smoking Tobacco: Never Passive Smoke Exposure: Never Smokeless Tobacco: Never Housing Stability Answer Date Recorded What is your housing situation today? I have eunice sing 09/19/[address] you li ve. Do you have problems with any of the following? None of the above 09/19/2023 Food Insecurity Answer Date Recorded Within the past 12 months, y ou worried that your food would run out before you got money to buy more: Never True 09/19/2023 Within the past 12 months,th e food you bought just didn't last and you didn't have enough money to get more: Never True 04/2024 Transportation Answer Date Recorded In the past 12 months, has l ack of transportation kept you from medical appts, meetings, work or from getting things needed for daily living? No 09/19/2023 Utilities Answer Date Recorded In the past 12 months, has t he electric, gas, oil or water company threatened to shut off services in your home? No 09/19/2023 Comments No Sex and Gender Information Value Date Recorded Sex Assigned at Female 08/30/2023 3:24 PM EST Legal Sex Female 3:22 PM EST Gender Identity Female 08/30/2023 3:24 PM EST Sexual Orientation Straight 08/30/2023 3: 24 PM EST Travel History Travel Start Travel End Anh 12/02/2024 2024 documented as of this encounter Plan of Treatment Upcoming Encounters Date Type Department Care Team ([facility] st Contact Info) Description 03/29/2025 9:00 AM EDT Office Visit [facility] [address] [place] [address] Flor Gomez MD [address] [place] [address] documented as of this encounter Procedures Procedure Name Priority Date/Time Associated Diagnosis Comments CBC Routine 11/20/2024 2:57 PM EDT RHEUMATOID FACTOR Routine 11/20/2024 2:5 7 PM EDT COMPREHENSIVE METABOLIC PANEL Routine 11/20/2024 2:57 PM EDT documented in this encounter Results * CBC (11/20/2024 2:57 PM EDT) Blood Venous blood specimen / Unknown [facility] Provider LAB BLOOD ORDERABLES Nayeli l Result * Comprehensive Metabolic Panel (11/20/2024 2:57 PM EDT) Blood Venous blood specimen / Unknown [facility] Provider LAB BLOOD ORDERABLES Nayeli l Result * Rheumatoid Factor (11/20/2024 2:57 PM EDT) Blood Venous blood specimen / Unknown [facility] Provider LAB BLOOD ORDERABLES Nayeli l Result documented in this encounter Visit Diagnoses Not on filedocumented in this encounter Care Teams Carbonation Equipment Operator Relationship Specialty Start Date End Date Flor Gomez MD [address] [place] [address] PCP - General Internal Medicine 09/27/23 documented as of this encounter
--- OUTSIDE RECORDS SUMMARY | 2024-12-28 10:59 | XMS_ITS | Encounter Summary ---
Author Organization [facility] Address [address] [place] [address] Care Team Providers Care Land Surveying Manager Name Role Phone Jasmin Snyder MD Primary Care Provider + Encounter Details Date Type Department Care Team (Late st Contact Info) Description 12/31/2018 1:56 PM EDT Hospital Encounter [facility] [address] [place] [phone] Yonis Brock MD [address] [place] [id number] Social History Tobacco Use Types Packs/Day Years [...] Diagnosis Comments XR CHEST 2 VIEWS STAT 12/31/2018 2:02 PM EDT Cough documented in this encounter Results * XR Chest 2 views (12/31/2018 2:02 PM EDT) Anatomical Region Laterality Modality Chest Computed Radiogr aphy 12/31/2018 2:02 PM EDT Impressions 12/31/2018 2:03 PM EDT Linear subsegmental atelectasis or infiltrate at the right lung base. No focal consolidation. Narrative 12/31/2018 2:03 PM EDT PROCEDURE: XR CHEST 2 VIEWS INDICATION: fever and left/right base crackles COMPARISON: None. TECHNIQUE: PA and lateral views of the chest. FINDINGS: Lines and Tubes: None. Heart and Mediastinum: The heart and mediastinal contours are unremarkable. Lungs and Pleura: There is linear subsegmental atelectasis or infiltrate at the right lung base. There is no focal consolidation. There are no pleural effusions. Skeletal structures: The bony structures are unremarkable. Procedure Note Ra Wall MD - 12/31/2018 PROCEDURE: XR CHEST 2 VIEWS INDICATION: fever and left/right base crackles COMPARISON: None. TECHNIQUE: PA and lateral views of the chest. FINDINGS: Lines and Tubes: None. Heart and Mediastinum: The heart and mediastinal contours areunremarkable. Lungs and Pleura: There is linear subsegmental atelectasis or infiltrateat the right lung base. There is no focal consolidation. There are nopleural effusions. Skeletal structures: The bony structures are unremarkable. IMPRESSION: Linear subsegmental atelectasis or infiltrate at the right lung base. Nofocal consolidation. Angela Beasley ROLLER SKATER IMG DIAGNOSTIC IMAGING ORDERA BLES Final Result documented in this encounter Visit Diagnoses Not on filedocumented in this encounter Care Teams Land Surveying Manager Relationship Specialty Start Date End Date Jasmin Snyder MD [address] [place] [id number] PCP - General 04/01/07 documented as of this encounter
--- OUTSIDE RECORDS SUMMARY | 2024-12-28 10:59 | XMS_ITS ---
Author Name [facility] Unknown History of Medication Use Medication Directions Dispensed Refills Start Date End Date [facility] dexamethasone (DECADRON) injection 4 mg 4 mg, Intravenous, Once as needed, other, nausea, vomiting, Starting on Tue02/22/24 at 1025, For 1 dose, PACU/Phase 1Administer 2nd unless given in the OR if zofran is ineffective and patient continues to be symptomatic. 02/22/2024 active oxyCODONE (ROXICODONE) 5 MG immediate release tablet 5 mg 5 mg, Oral, Every 4 hours PRN, moderate pain (4-6), achieve pain scale less than or equal to 4, Starting on Tue02/22/24 at 1025, For 2 doses, PACU/Phase 1Give when patient is able to take PO. 02/22/2024 active Scopolamine (TRANSDERM-SCOP) 1 MG/3DAYS 1 patch 1 patch, Transdermal, Administer over 72 Hours, Every 72 hours, First dose on Tue02/22/24 at 0900, Pre-opTransdermal System 1.5 mg (Formulated delivery of approximately 1 mg over three days) 02/22/2024 active benzonatate 200 mg capsule TAKE 1 CAPSULE BY MOUTH THREE TIMES A DAY NEEDED FOR COUGH 4 completed proMETHAZINE-dextro methorphan (proMETHAZINE-DM) 6.25-15 MG/5ML syrup Take 5 mL by mouth every 4 (four) hours as needed for cough. 12/31/2018 active Selenium (SELENIMIN PO) Take by mouth daily. active rosuvastatin (CRESTOR) tablet 10 mg 09/29/2023 active leflunomide 20 mg tablet Take 1 tablet every day by oral route. active prednisone 20 mg tablet TAKE 1 TABLET BY MOUTH 2 TIMES A DAY. WITH FOOD. active azelastine (ASTEPRO) 0.15 % nasal spray spray or apply 1 spray inside Nose. active lisinopril (PRINIVIL,ZeSTRIL) 10 MG tablet Take 10 mg by mouth daily. active ondansetron (ZOFRAN) injection 4 mg 4 mg, Intravenous, Once as needed, nausea, vomiting, Starting on Tue02/22/24 at 1025, For 1 dose, PACU/Phase 1Administer 1st unless given in OR, then administer dexamethasone 02/22/2024 active dexamethasone 4 mg tablet 8 completed meperidine (DEMEROL) 25 MG/ML injection 12.5 mg 12.5 mg, Intravenous, Every 30 min PRN, shivering not due to postoperative hypothermia., Starting on Tue02/22/24 at 1025, For 2 doses, PACU/Phase 1May repeat x 1 in 30 minutes. 02/22/2024 active lactated ringers infusion 125 mL/hr, Intravenous, Continuous, Starting on Tue02/22/24 at 0800, Pre-op 02/22/2024 active Allergies Allergen Reaction Severity Comment Documented Date Source Statu s TOMATO ALLERGENIC EXTRACT [facility] PENICILLIN AND ACTING ANTIBACTERIAL AGENT (PRODUCT) [facility] Problems Problem Status Onset Date Problem Type Date of Resolution Source Anemia active 2018-05-04 ProblemAct CTHLPWH Asthma active 2018-05-04 ProblemAct [facility] Anxiety active 2018-05-04 ProblemAct [facility] Other abnormal cytological findings on specimens from cervix uteri active EncounterDiagnosisAct CTTHSF RAN Abnormal uterine and vaginal bleeding, unspecified active EncounterDiagnosisAct CTTHSF RAN Acute laryngitis active EncounterDiagnosisAct CCT Acid reflux active 2018-05-04 ProblemAct CTHLPW H Bronchitis active EncounterDiagnosisAct HHCCT Immunizations Vaccine Date Source Lot Number Status Tdap 08/30/2017 [facility] [id number] completed COVID-19, mRNA, LNP-S, PF, 30 mcg/0.3 mL dose 12/22/2020 [facility] [id number] completed COVID-19, mRNA, LNP-S, PF, 3 0 mcg/0.3 mL dose, ericka-sucrose 10/09/2021 [facility] [id number] completed COVID-19, mRNA, LNP-S, PF, 30 mcg/0.3 mL dose 01/12/2021 [facility] [id number] completed Encounters Encounter Type Encounter Reason Primary Diagnosis Location Date Ambulatory Encounter for other specified surgical aftercare Encounter for other specified surgical aftercare [facility] 07/23/2024 Ambulatory Abnormal uterine and vaginal bleeding, unspecified Abnormal uterine and vaginal bleeding, unspecified [facility], [facility] 03/06/2024 Ambulatory Abnormal uterine and vaginal bleeding, unspecified Abnormal uterine and vaginal bleeding, unspecified [facility] 02/22/2024 Ambulatory Proc/trtmt not crd out bec pt decision for unsp reasons Proc/trtmt not crd out bec pt decision for unsp reasons [facility], [facility] 02/10/2024 Ambulatory Unsp abnormal cytological findings in specimens from vagina Unsp abnormal cytological findings in specimens from vagina [facility] 01/10/2024 Ambulatory O-film 08/04/2023 Ambulatory Bronchitis, not specified as acute or chronic Bronchitis, not specified as acute or chronic [facility] 08/04/2023 Ambulatory Other specified abnormal uterine and vaginal bleeding [facility], [facility] 06/30/2023 Ambulatory Abnormal uterine and vaginal bleeding, unspecified [facility], [facility] 06/28/2023 Ambulatory Encntr for blue line trimmer exam (general) (routine) w/o abn findings [facility] 06/20/2023 Ambulatory Allergic contact dermatitis due to plants, except food Allergic contact dermatitis due to plants, except food [facility] 05/06/2023 Care Team Organization Name Specialty Phone Email Start Date End Da te [facility] 02/17/2024 [facility] 02/15/2024 [facility] 02/14/2024 [facility], [facility] 06/21/2023 [facility], [facility] 06/20/202306/20 [facility] Jasmin Zamora Primary Care 05/06/2023 05/06/2023 [facility] RHETT ZAMORA Primary Care 05/06/2023 11/28/2024 [facility] 07/14/2022 04/30/2024
--- OUTSIDE RECORDS SUMMARY | 2024-12-28 10:59 | XMS_ITS | Encounter Summary ---
Author Organization [employer] Address [address] [facility] [address] [place] [address] Care Team Providers Care Animal Laboratory Technician Name Role Phone Flor Gomez MD Primary Care Provider [phone] Encounter Details Date Type Department Care Team ([facility] st Contact Info) Description 03/01/2024 Orders Only [facility] MED & PEDS [address] [place] [address] ProviderAlonzo MD Social History Tobacco Use Types [...] Upcoming Encounters Date Type Department Care Team ([facility] st Contact Info) Description 03/29/2025 9:00 AM EDT Office Visit [facility] MED & PEDS [address] [place] [address] Flor Gomez MD [address] [place] [address] documented as of this encounter Procedures Procedure Name Priority Date/Time Associated Diagnosis Comments CYTOLOGY, CONVENTIONAL PAP SMEAR, 1 SLIDE Routine 02/22/2024 2:44 PM EDT documented in this encounter Results * Cytology, Conventional Pap Smear, 1 Slide (02/22/2024 2:44 PM EDT) us Historical Provider LAB CYTOLOGY ORDERABLES F inal Result documented in this encounter Visit Diagnoses Not on filedocumented in this encounter Care Teams Animal Laboratory Technician Relationship Specialty Start Date End Date Flor Gomez MD [address] [place] [address] PCP - General Internal Medicine 09/27/23 documented as of this encounter
--- OUTSIDE RECORDS SUMMARY | 2024-12-28 10:59 | XMS_ITS | Encounter Summary ---
Author Organization [employer] Address [address] [facility] 7 [place] [address] Care Team Providers Care Finisher Hot Strip Name Role Phone Flor Gomez MD Primary Care Provider [phone] Encounter Details Date Type Department Care Team (Late st Contact Info) Description 11/22/2024 Orders Only [facility] [address] [place], [place] [phone] Provider, MD Alonzo Social History Tobacco Use Types Packs/Day Years [...] Upcoming Encounters Date Type Department Care Team ([facility] st Contact Info) Description 03/29/2025 9:00 AM EDT Office Visit [facility] MED & PEDS [address] [place] [address] Flor Gomez MD [address] [place] [address] documented as of this encounter Procedures Procedure Name Priority Date/Time Associated Diagnosis Comments ANTI-CCP (CYCLIC CITRULLINATED PEPTIDE) AB, IGG AND IGA Routine 11/20/2024 2:44 PM EDT documented in this encounter Results * Anti-CCP (Cyclic Citrullinated Peptide) Antibodies, IgG and IgA (11/20/2024 2:44 PM EDT) us Historical Provider LAB BLOOD ORDERABLES Nayeli l Result documented in this encounter Visit Diagnoses Not on filedocumented in this encounter Care Teams Finisher Hot Strip Relationship Specialty Start Date End Date Flor Gomez MD [address] [place] [address] PCP - General Internal Medicine 09/27/23 documented as of this encounter
--- OUTSIDE RECORDS SUMMARY | 2024-12-28 10:59 | XMS_ITS | Encounter Summary ---
Author Organization [facility] Address [address] [place] [address] Care Team Providers Care Network Operations Lead Name Role Phone Jasmin Snyder MD Primary Care Provider + Encounter Details Date Type Department Care Team (Late st Contact Info) Description 08/04/2023 11:18 AM EST Hospital Encounter [facility] [address] [place] [phone] Adele Burt PA NEEDS ADDRESS CT Social [...] on filedocumented in this encounter Care Teams Network Operations Lead Relationship Specialty Start Date End Date Jasmin Snyder MD [address] [place] [id number] PCP - General 04/01/07 documented as of this encounter
--- OUTSIDE RECORDS SUMMARY | 2024-12-28 10:59 | XMS_ITS | Encounter Summary ---
Author Organization [employer] Address [address] [facility] 7[address] [place] [address] Care Team Providers Care Liner Inserter Name Role Phone Flor Gomez MD Primary Care Provider Encounter Details Date Type Department Care Team ([facility] st Contact Info) Description 03/20/2024 Orders Only [facility] MED & PEDS [address] [place] [address] ProviderAlonzo MD Social History Tobacco Use Types [...] Upcoming Encounters Date Type Department Care Team ([facility] st Contact Info) Description 03/29/2025 9:00 AM EDT Office Visit [facility]ED[facility] [address] [place] [address] Flor Gomez MD [address] [place] [address] documented as of this encounter Procedures Procedure Name Priority Date/Time Associated Diagnosis Comments SURGICAL PATHOLOGY Routine 02/22/2024 12:09 PM EDT documented in this encounter Results * Surgical Pathology (02/22/2024 12:09 PM EDT) Historical Provider LAB PATHOLOGY ORDERABLES Final Result documented in this encounter Visit Diagnoses Not on filedocumented in this encounter Care Teams Liner Inserter Relationship Specialty Start Date End Date Flor Gomez MD [address] [place] [address] PCP - General Internal Medicine 09/27/23 documented as of this encounter
--- OUTSIDE RECORDS SUMMARY | 2024-12-28 10:59 | XMS_ITS | Encounter Summary ---
Author Organization [employer] Address [address] [facility] [address] [place] [address] Care Team Providers Care Clinical Pharmacy Specialist Name Role Phone Flor Gomez MD Primary Care Provider [phone] Encounter Details Date Type Department Care Team (Late st Contact Info) Description 02/02/2024 Orders Only [facility] [address] [place], [place] [phone] Provider, MD Alonzo Social History Tobacco Use [...] Upcoming Encounters Date Type Department Care Team ([facility] st Contact Info) Description 03/29/2025 9:00 AM EDT Office Visit [facility] & PEDS [address] [place] [address] Flor Gomez MD [address] [place] [address] documented as of this encounter Procedures Procedure Name Priority Date/Time Associated Diagnosis Comments POCT SEDIMENTATION RATE, MANUAL Routine 02/01/2024 1:11 PM EDT COMPREHENSIVE METABOLIC PANEL Routine 02/01/2024 1:11 PM EDT documented in this encounter Results * POCT sedimentation rate docked device (02/01/2024 1:11 PM EDT) Blood Venous blood specimen / Unknown [facility] Provider LAB POINT OF CARE TEST DO CKED DEVICE ORDERABLES Final Result * Comprehensive Metabolic Panel (02/01/2024 1:11 PM EDT) Blood Venous blood specimen / Unknown [facility] Provider LAB BLOOD ORDERABLES Nayeli l Result documented in this encounter Visit Diagnoses Not on filedocumented in this encounter Care Teams Clinical Pharmacy Specialist Relationship Specialty Start Date End Date Flor Gomez MD [address] [place] [address] PCP - General Internal Medicine 09/27/23 documented as of this encounter
--- OUTSIDE RECORDS SUMMARY | 2024-12-28 10:59 | XMS_ITS | Clinical Summary ---
Author Organization [facility] Address [address] [place] [address] Care Team Providers Care Deicer Kit Assembler Name Role Phone Flor Gomez MD Primary Care Provider [phone] Allergies Active Allergy Reactions Criticality Noted Date Comments [place] Anaphylaxis High 02/22/2024 Amlodipine Swelling 02/17/2024 Gluten 02/22/2024 Peanuts Anaphylaxis High 02/22/2024 Penicillins Hives 12/22/2020 Medications Medication Sig Dispensed Refills Start Date End Date Status rosuvastatin (CRESTOR) tablet 10 mg 0 09/29/2023 Active lisinopril (PRINIVIL,ZESTRIL) tablet 10 mg Take 1 tablet every day by oral route. 0 09/27/2023 Active leflunomide (ARAVA) 20 MG tablet Take 1 tablet every day by oral route. 0 06/09/2023 Active azelastine (ASTEPRO) 0.15 % nasal spray spray or apply 1 spray inside Nose. 0 Active Multiple Vitamin (MV-One) CAPS Take by mouth daily. 0 A ctive Chauvin-3 Fatty Acids (FISH OIL PO) Take by mouth daily. 0 Acti ve UNABLE TO FIND Adrenaline Support from chiropractor for anxiety 0 Active Selenium (SELENIMIN PO) Take by mouth daily. 0 Active VITAMIN D PO Take by mouth daily. 0 Ac tive acetaminophen (TYLENOL) 325 MG tablet Take 2 tablets (650 mg total) by mouth every 6 (six) hours as needed. 30 tablet 0 02/22/2024 Active Immunizations Name Administration Dates Next Due Covid-19 (Pfizer) Dilution Required 01/12/2021,0 12/22/2020 Social History Tobacco Use Types Packs/Day Years Used Date Smoking Tobacco: Never Smokeless Tobacco: Never Tobacco Cessation:Counseling Given: Not Answered Alcohol Use Standard Drinks/Week Comments Yes 0 (1 standard drink = 0.6 oz pur e alcohol) 3-4 drinks/year Sex and Gender Information Value Date Recorded Sex Assigned at Female 12/22/2020 10:54 AM EDT Gender Identity Not on file Sexual Orientation Not on file Job Start Date Occupation Industry Not on file Not on file Not on file Last Filed Vital Signs Vital Sign Reading Time Taken Comments Blood Pressure 132/81 02/22/2024 11:37 AM EDT Pulse 66 02/22/2024 11:37 AM EDT Temperature 36.7 ??C (98.1 ??F) 02/22/2024 11:27 AM E DT Respiratory Rate 16 02/22/2024 11:37 AM EDT Oxygen Saturation 98% 02/22/2024 11:37 AM EDT Inhaled Oxygen Concentration - - Weight 83 kg (183 lb) 02/17/2024 11:42 AM EDT Height 160 cm (5' 3 ) 02/17/2024 11:42 AM EDT Body Mass Index 32.42 02/17/2024 11:42 AM EDT Plan of Treatment Health Maintenance Due Date Last Done Comments Hepatitis B Vaccines (1 of 3 - 3-dose series) 1974 Hepatitis C Screening 1974 Depression Screening 1986 BMI Counseling 1992 Preventative Health Evaluation 1992 Colon Cancer Screening (Colonoscopy) 12/10/2019 COVID-19 Vaccine (2023-2 5 season) 2024 10/09/2021, 01/12/2021, 12/22/2020 Influenza Vaccine (#1) 2024 09/27/2023 Breast Cancer Screening (Mammogram) 2024 Shingrix-Zoster Vaccine (1 o f 2) 2024 Cervical Cancer Screening (Pap Smear) 02/21/2027 02/22/2024 DTap / Tdap / Td (2 - Td or Tdap) 08/30/2027 08/30/2017 Pneumococcal Vaccine Aged Out No long er eligible based on patient's age to complete this topic RSV Ped < 20 months Aged Out No longe r eligible based on patient's age to complete this topic Advance Directives For more information, please contact: [phone] Latest Code Status on File Code Status Date Activated Date Inactivated Comments Full Code 02/22/2024 7:46 AM 02/22/2024 6:51 PM This code status was ascertained in the following way: discussion with patient . Care Teams Deicer Kit Assembler Relationship Specialty Start Date End Date Flor Gomez MD [address] [place] [address] PCP - General Pediatrics 02/20/24
--- OUTSIDE RECORDS SUMMARY | 2024-12-28 11:00 | XMS_ITS | Encounter Summary ---
Author Organization [employer] Address [address] [facility] 7[address] [place] [address] Care Team Providers Care Bottom Turner Name Role Phone Flor Gomez MD Primary Care Provider [phone] Encounter Details Date Type Department Care Team (Latest Contact Info) Description 12/27/2024 Travel Social History Tobacco Use Types Packs/Day Years Used Date Smoking Tobacco: Never Passive Smoke Exposure: Never Smokeless Tobacco: Never Housing Stability Answer Date Recorded What is your housing situation today? I have eunice dupree 09/19/[address] you li [...] EST Travel History Travel Start Travel End [place] 12/02/2024 2024 documented as of this encounter Plan of Treatment Upcoming Encounters Date Type Department Care Team (Late st Contact Info) Description 03/29/2025 9:00 AM EDT Office Visit [facility] PED[facility] [address] [place] [address] Flor Gomez MD [address] [place] [address] documented as of this encounter Visit Diagnoses Not on filedocumented in this encounter Care Teams Bottom Turner Relationship Specialty Start Date End Date Flor Gomez MD [address] [place] [address] PCP - General Internal Medicine 09/27/23 documented as of this encounter
--- OUTSIDE RECORDS SUMMARY | 2024-12-28 11:00 | XMS_ITS | Clinical Summary ---
Author Organization [employer] Address [address] [facility] 7[address] [place] [address] Care Team Providers Care Tankroom Tender Name Role Phone Flor Gomez MD Primary Care Provider [phone] Allergies Active Allergy Reactions Criticality Noted Date Comments [place] Oil Hives 09/27/2023 Amlodipine Hives,Swelling Medium 05/06/2023 Gluten Meal Hives,Nausea And Vomiting Low 05/31/2023 Other reaction(s): GI Upset Penicillins Hives Medium 12/31/2018 Pollen Extract 05/31/2023 Tomato Hives 09/27/2023 Medications cholecalciferol (Vitamin D-[address]) 25 MCG (1000 UT) tablet Take 1,000 Units by mouth in the morning. Active albuterol 108 (90 Base) MCG/ACT inhaler Inhale 2 puffs every 4 (four) hours if needed. 3 Active acetaminophen (Tylenol 8 Hour) 650 MG ER tablet Take 2 tablets by mouth every 8 (eight) hours if needed. Active clobetasol (Temovate) 0.05 % ointment Apply topically 2 times daily. 3 Active leflunomide (Arava) 20 MG tablet Take 20 mg by mouth in the morning. 3 Active fish oil ([place]-3) 500 MG capsule Take 1 capsule (500 mg) by mouth in the morning. 60 capsule 11 4 Active lisinopril 10 MG tablet TAKE ONE TABLET (10mg total) BY MOUTH IN THE MORNING 90 tablet 5 Active naproxen (Naprosyn) 500 MG tablet Take 500 mg by mouth with breakfast and with evening meal. 5 Active rosuvastatin (Crestor) 10 MG tablet 4 12/29/19 25 Discontinu ed(Side effects) Active Problems Problem Noted Date Diagnosed Date [facility] with negative rheumatoid factor 06/09/2023 09/27/2023 Overview (09/27/2023): Last Assessment & Plan: Seronegative rheumatoid arthritis currently well controlled on daily leflunomide with minimal stiffness and no swelling. Sent her for labs today. Also sent in a 90-day refill. Asthma 05/04/2018 09/27/2023 Anxiety 05/04/2018 09/27/2023 Anemia 05/04/2018 09/27/2023 Encounters Date Type Department Care Team Description 12/28/2024 9:00 AM EDT Office Visit [facility] CH[facility] MED & PEDS [address] [place] [address] Flor Gomez MD Chronic diarrhea (Primary Dx); Moderate mixed hyperlipidemia not requiring statin therapy; Dietary counseling; Exercise counseling 12/28/2024 Travel 12/27/2024 Travel 12/20/[address] [facility] MED & PEDS [address] [place] [address] Flor Gomez MD Need to r/s appt/ Provider off 11/22/2024 Orders Only [employer] [address] [place], [place] [phone] Alonzo Garcia MD 11/21/2024 Orders Only [facility] CH[facility] MED & PEDS [address] [place] [address] Alonzo Garcia MD 11/13/2024 Orders Only [facility] CH[facility] MED & PEDS [address] [place] [address] Flor Gomez MD Moderate mixed hyperlipidemia not requiring statin therapy (Primary Dx) 11/12/2024 Telephone [facility] MEDICINE [address] [place] [address] [phone] Flor Gomez MD Call Back Request 11/09/2024 Refill [facility] MED & PEDS [address] [place] [address] Flor Gomez MD from Last 3 Months Immunizations Name Administration Dates Next Due Influenza injectable quadrivalent preservative f ree 09/27/2023 Pfizer Covid-19 Vaccine 12+ 10/09/2021 Tdap 08/30/2017 Social History Tobacco Use Types Packs/Day Years Used Date Smoking Tobacco: Never Passive Smoke Exposure: Never Smokeless Tobacco: Never Tobacco Cessation:Counseling Given: Not Answered Housing Stability Answer Date Recorded What is [...] EST Travel History Travel Start Travel End [place] 12/02/2024 2024 Last Filed Vital Signs Vital Sign Reading Time Taken Comments Blood Pressure 140/80 12/28/2024 9:35 AM EDT Pulse 74 12/28/2024 9:13 AM EDT Temperature 36.4 ??C (97.6 ??F) 12/28/2024 9:13 AM ED T Respiratory Rate 20 12/28/2024 9:13 AM EDT Oxygen Saturation 96% 12/28/2024 9:13 AM EDT Inhaled Oxygen Concentration - - Weight 82.1 kg (181 lb) 12/28/2024 9:13 AM EDT Height 160.7 cm (5' 3.25 ) 12/28/2024 9:13 AM ED T Body Mass Index 31.81 12/28/2024 9:13 AM EDT Plan of Treatment Upcoming Encounters Date Type Department Care Team ([facility] st Contact Info) Description 03/29/2025 9:00 AM EDT Office Visit [facility] MED & PEDS [address] [place] [address] Flor Gomez MD [address] [place] [address] Health Maintenance Due Date Last Done Comments CT Colonography 1974 Colonoscopy 1974 Depression Screening 1974 FIT 1974 FOBT 1974 HIV Screening 1974 Sigmoidoscopy 1974 Alcohol/Substance Use Screening 1986 Family Planning (PISQ) 1989 Hepatitis C Screening 1992 Hepatitis B Vaccines (1 of 3 - 19+ 3-dose series) 1993 Pneumococcal Vaccine: 50+ Years (1 of 2 - PCV) 1993 Pap Smear 12/10/1995 Cervical Cancer Screening 2004 HPV/Cotest 2004 Mammogram 2014 COVID-19 Vaccine (4 - 2023-2 5 season) 2024 10/09/2021, 01/12/2021, 12/22/2020 Influenza Vaccine (#1) 2024 09/27/2023 SDOH Screening 09/19/2024 09/19/2023 Zoster Vaccines (1 of 2) 2024 Tobacco Screening 12/28/2025 12/28/2024 Colorectal Cancer Screening 10/04/2026 FIT DNA/Cologuard 10/04/2026 10/04/2023 DTaP/Tdap/Td Vaccines (2 - T d or Tdap) 08/30/2027 08/30/2017 Lipid Panel 10/04/2029 10/04/2024, 01/27/2024, 09/27/2023 RSV Patients and Patients Aged 60 years or older (1 - 1-dose 75+ series) 2049 HIB Vaccines Aged Out No longer eligi [...] patient's age to complete this topic Meningococcal Vaccine Aged Out No rangel michael eligible based on patient's age to complete this topic RSV under 20 months Aged Out No longe r eligible based on patient's age to complete this topic Rotavirus Vaccines Aged Out No longer eligible based on patient's age to complete this topic Procedures Procedure Name Priority Date/Time Associated Diagnosis Comments CBC Routine 11/20/2024 2:57 PM EDT COMPREHENSIVE METABOLIC PANEL Routine 11/20/2024 2:57 PM EDT RHEUMATOID FACTOR Routine 11/20/2024 2:5 7 PM EDT ANTI-CCP (CYCLIC CITRULLINATED PEPTIDE) AB, IGG AND IGA Routine 11/20/2024 2:44 PM EDT LIPID PANEL, STANDARD Routine 10/04/2024 Mixed dyslipidemia LAB COLOGUARD?? COLON CANCER SCREEN Routine 10/04/2023 8:10 AM EST Colon cancer screening from Last 3 Months or Most Recently Relevant to Health Maintenance Results * CBC (11/20/2024 2:57 PM EDT) Blood Venous blood specimen / Unknown Historical Provider MD LAB BLOOD ORDERABLES Nayeli l Result * Rheumatoid Factor (11/20/2024 2:57 PM EDT) Blood Venous blood specimen / Unknown Historical Provider MD LAB BLOOD ORDERABLES Nayeli l Result * Comprehensive Metabolic Panel (11/20/2024 2:57 PM EDT) Blood Venous blood specimen / Unknown Historical Provider MD LAB BLOOD ORDERABLES Nayeli l Result * Anti-CCP (Cyclic Citrullinated Peptide) Antibodies, IgG and IgA (11/20/2024 2:44 PM EDT) us Historical Provider LAB BLOOD ORDERABLES Nayeli perkins Result * Lipid Panel, Standard (10/04/2024) Blood Venous blood specimen / Unknown Flor Gomez MD LAB BLOOD ORDERABLES Final Re sult [facility] [address] [place] [address] [phone] * Cologuard?? colon cancer screening (10/04/2023 8:10 AM EST) Cologuard Result Negative Negative 10/14/19 24 8:42 PM EST [facility] (CLIA #:[id number]) Comment: NEGATIVE TEST RESULT. A negative Cologuard result indicates a low likelihood that a colorectal cancer (CRC) or advanced adenoma (adenomatous polyps with more advanced pre-malignant features) ??is present. The chance that a person with a negative Cologuard test has a colorectal cancer is less than 1 in 1500 (negative predictive value >99.9%) or has an ??advanced adenoma is less than ??5.3% (negative predictive value 94.7%). These data are based on a prospective cross-sectional study of 10,000 individuals at average risk for colorectal cancer who were screened with both Cologuard and colonoscopy. (Jessica Edwards al, N Engl J Med 2014;370(14):1286- 1297) The normal value (reference range) for this assay is negative. COLOGUARD RE-SCREENING RECOMMENDATION: Periodic colorectal cancer screening is an important part of preventive healthcare for asymptomatic individuals at average risk for colorectal cancer. ??Following a negative Cologuard result, the Chinese Cancer Society and U.S. Multi-Society Task Force screening guidelines recommend a Cologuard re-screening interval of 3 years. References: Chinese Cancer Society Guideline for Colorectal Cancer Screening: https://www.cancer.org/cancer/ymvow-lwsnfh-ajlkhn/eaabzaecl-aokapacue-ciqurpd/ac s-rec ommendations.html.; Macario DK, Dorina CR, Deng GoldbergK, Colorectal Cancer Screening: Recommendations for Physicians and Patients from the U.S. Multi-Society Task Force on Colorectal Cancer Screening , Am J Gastroenterology 2017; 112:9547-2795. TEST DESCRIPTION: Composite algorithmic analysis of stool DNA-biomarkers with hemoglobin immunoassay. ?? Quantitative values of individual biomarkers are not reportable and are not associated with individual biomarker result reference ranges. Cologuard is intended for colorectal cancer screening of adults of either sex, 45 years or older, who are at average-risk for colorectal cancer (CRC). Cologuard has been approved for use by the U.S. FDA. The performance of Cologuard was established in a cross sectional study of average-risk adults aged 50-84. Cologuard performance in patients ages 45 to 49 years was estimated by sub-group analysis of near-age groups. Colonoscopies performed for a positive result may find as the most clinically significant lesion: colorectal cancer [4.0%], advanced adenoma (including sessile serrated polyps greater than or equal to 1cm diameter) [20%] or non- advanced adenoma [31%]; or no colorectal neoplasia [45%]. These estimates are derived from a prospective cross-sectional screening study of 10,000 individuals at average risk for colorectal cancer who were screened with both Cologuard and colonoscopy. (Jessica Edwards al, N Engl J Med 2014;370(14):9490-0940.) Cologuard may produce a false negative or false positive result (no colorectal cancer or precancerous polyp present at colonoscopy follow up). A negative Cologuard test result does not guarantee the absence of CRC or advanced adenoma (pre-cancer). The current Cologuard screening interval is every 3 years. (Chinese Cancer Society and U.S. Multi-Society Task Force). Cologuard performance data in a 10,000 patient pivotal study using colonoscopy as the reference method can be accessed at the following location: www.[employer]olane[employer]/results. Additional description of the Cologuard test process, warnings and precautions can be found at www.[employer]. Stool specimen (specimen) 10/04/2023 8:10 AM EST 10/05/2023 2:26 PM EST Flor Gomez MD LAB MOLECULAR DIAGNOSTICS ORD ERABLES Final Result [facility] (CLIA #:[id number]) [place] [address], from Last 3 Months or Most Recently Relevant to Health Maintenance Insurance ALFRED BRONXJESSICA [address] Advance Directives Documents on File Type Date Recorded Patient Critical Care Transport Nurse Expl anation Advance Directives and Living Will 02/09/2024 3:27 PM Appointment of [facility] Care Critical Care Transport Nurse Care Teams Tankroom Tender Relationship Specialty Start Date End Date Flor Gomez MD [address] [place] [id number] PCP - General Internal Medicine 09/27/23
--- OUTSIDE RECORDS SUMMARY | 2024-12-28 11:00 | XMS_ITS | Clinical Summary ---
Author Organization [facility] Address [address] [place] [address] Care Team Providers Care Middleware Solutions Architect Name Role Phone Jasmin Snyder MD Primary Care Provider + Allergies Active Allergy Reactions Criticality Noted Date Comments Amlodipine Swelling Medium 05/06/2023 Gluten GI Intolerance/Nausea/Vomiting Low 08/04 Penicillins Hives Medium 12/31/2018 Medications proMETHAZINE-dext romethorphan (proMETHAZINE-DM) 6.25-15 MG/5ML syrupIndications: Bronchitis with bronchospasm Take 5 mL by mouth every 4 (four) hours as needed for cough. 120 mL 9 Active lisinopril (PRINIVIL,ZeSTRIL ) 10 MG tablet Take 10 mg by mouth daily. Active leflunomide (ARAVA) 20 MG tablet Take 20 mg by mouth daily. Active clobetasol (TEMOVATE) 0.05 % ointmentIndicatio ns:Poison jaren dermatitis Apply topically 2 (two) times a day. 45 g 3 Active albuterol (PROVENTIL HFA; VENTOLIN HFA) 108 (90 Base) MCG/ACT inhalerIndication s:Bronchitis Inhale 2 puffs every 4 (four) hours as needed for wheezing or shortness of breath. 1 each 3 Active benzonatate (TESSALON) 200 MG capsuleIndication s:Bronchitis Take 1 capsule (200 mg total) by mouth 3 (three) times a day as needed for cough. 20 capsule 3 Active Active Problems No known active problems Social History Tobacco Use Types Packs/Day Years Used Date Smoking Tobacco: Never Smokeless Tobacco: Never Tobacco Cessation:Counseling Given: Not Answered Comments Unknown Sex and Gender Information Value Date Recorded Sex Assigned at Female 05/06/2023 5:36 PM EDT Legal Sex Female 12:52 PM EDT Gender Identity Female 05/06/2023 5:36 PM EDT Sexual Orientation Heterosexual (straight) 05/06 5:36 PM EDT Last Filed Vital Signs Vital Sign Reading Time Taken Comments Blood Pressure 137/93 08/04/2023 11:07 AM EST Pulse 96 08/04/2023 11:07 AM EST Temperature 37.1 ??C (98.7 ??F) 08/04/2023 11:[address] Respiratory Rate - - Oxygen Saturation 97% 08/04/2023 11:07 AM EST Inhaled Oxygen Concentration - - Weight 82.6 kg (182 lb) 08/04/2023 11:07 AM EST Height 162.6 cm (5' 4 ) 08/04/2023 11:07 AM EST Body Mass Index 31.24 08/04/2023 11:07 AM EST Plan of Treatment Health Maintenance Due Date Last Done Comments Hepatitis C Virus Screening 1974 HIV Screening 12/10/1987 DTaP/Tdap/Td Vaccines (1 - Tdap) 1993 Hepatitis B Vaccines (1 of 3 - 19+ 3-dose series) 1993 Pneumococcal Vaccines 50+ (1 of 2 - PCV) 1993 Zoster (Shingles) Vaccine (1 of 2) 1993 Mammogram 2014 Colonoscopy 12/10/2019 Influenza Vaccine 04/12/2024 COVID-19 Vaccine ( season) 2024 10/09/2021, 01/12/2021, 12/22/2020 Pap Smear (Ages 21-65) 07/23/2027 07/23/2024, 2022 Procedures Procedure Name Priority Date/Time Associated Diagnosis Comments THINPREP PAP(TOLL SERVICE OBSERVER) HPV SCR RFX HPV 16,18/45 Routine 07/23/2024 12:00 AM EST from Last 3 Months or Most Recently Relevant to Health Maintenance Results * ThinPrep Pap(Body Trimmer Upholsterer) HPV Scr Rfx HPV 16,18/45 (07/23/2024 12:00 AM EST) Report Report [facility] Comment: Final Gynecological Cytology Report ThinPrep Pap Test, HPV Screen, Reflex HPV Genotype SPECIMEN ADEQUACY: SATISFACTORY FOR EVALUATION; ENDOCERVICAL/TRANSFORMATION ZONE COMPONENT PRESENT. INTERPRETATION: NEGATIVE FOR INTRAEPITHELIAL LESION OR MALIGNANCY. Electronically Signed: ??Marquise Dacosta ??CT (ASCP) Electronically Signed: ??Oliver Alvarez, CT(ASCP) CLINICAL INFORMATION: LMP: NG Clinical History: ??NG Biopsy Date: ??NG Specimen Source: ??Cervix, Endocervix Previous Pap Date: ??NG HPV RESULTS: HPV mRNA E6/E7 ?? [id number] ?? Approved: 07/25/24 Negative ? REF RANGE: Negative CPT Codes: 10947 ICD Codes: R87.610 07/23/2024 07/24/2024 1:2 9 PM EST us Barbra Abdi MD LAB AMB PATH/CYTO ORDERABLES F inal Result [facility] [address] [place], [place] from Last 3 Months or Most Recently Relevant to Health Maintenance Insurance [id number] Care Teams Middleware Solutions Architect Relationship Specialty Start Date End Date Jasmin Snyder MD [address] [place], [place] [address] PCP - General 04/01/07
--- OUTSIDE RECORDS SUMMARY | 2024-12-28 11:00 | XMS_ITS | Encounter Summary ---
Author Organization [employer] Address [address] [facility] [address] [place] [address] Care Team Providers Care Liquor Establishment Manager Name Role Phone Flor Gomez MD Primary Care Provider [phone] Encounter Details Date Type Department Care Team (Latest Contact Info) Description 12/28/2024 Travel Social History Tobacco Use Types Packs/Day [...] EST Travel History Travel Start Travel End [place] 12/02/2024 2024 documented as of this encounter Plan of Treatment Upcoming Encounters Date Type Department Care Team (Late st Contact Info) Description 03/29/2025 9:00 AM EDT Office Visit [facility] MED & PEDS [address] [place] [address] Flor Gomez MD [address] [place] [address] documented as of this encounter Visit Diagnoses Not on filedocumented in this encounter Care Teams Liquor Establishment Manager Relationship Specialty Start Date End Date Flor Gomez MD [address] [place] [address] PCP - General Internal Medicine 09/27/23 documented as of this encounter
--- OUTSIDE RECORDS SUMMARY | 2024-12-28 11:00 | XMS_ITS | Encounter Summary ---
Author Organization [employer] Address [address] [facility] 7 [place] [address] Care Team Providers Care Schedule Hanger Name Role Phone Flor Gomez MD Primary Care Provider [phone] Encounter Details Date Type Department Care Team (Latest Contact Info) Description 12/28/2024 9:00 AM EDT Office Visit [facility] MED & PEDS [address] [place], [place] [phone] Flor Gomez MD [address] [place], [place] [phone] Chronic diarrhea (Primary Dx); Moderate mixed hyperlipidemia not requiring statin therapy; Dietary counseling; Exercise counseling Social History Tobacco Use Types Packs/Day Years [...] EST Travel History Travel Start Travel End [place] 12/02/2024 2024 documented as of this encounter Last Filed Vital Signs Vital Sign Reading [...] Mass Index 31.81 12/28/2024 9:13 AM EDT documented in this encounter Plan of Treatment Upcoming Encounters Date Type Department Care Team (Late st Contact Info) Description 03/29/2025 9:00 AM EDT Office Visit [facility] MED & PEDS [address] [place] [address] Flor Gomez MD [address] [place] [address] Scheduled Orders Name Type Priority Associated Diagnoses Orde r Schedule Celiac Disease Comprehensive Panel Lab Routine Chronic diarrhea Expected: 12/28/2024, Expires: 12/28/2025 Lipid Panel, Standard Lab Routine Moderate mixed hyperlipidemia not requiring statin therapy Expected: 03/29/2025 (Approximate), Expires: 12/28/2025 documented as of this encounter Visit Diagnoses Diagnosis Chronic diarrhea- Primary Diarrhea Moderate mixed hyperlipidemia not requiring statin therapy Dietary counseling Dietary surveillance and counseling Exercise counseling documented in this encounter Care Teams Schedule Hanger Relationship Specialty Start Date End Date Flor Gomez MD [address] [place] [address] PCP - General Internal Medicine 09/27/23 documented as of this encounter
[2024-12-28 15:03] LABS: Cholesterol 202 mg/dL (<200); HDL Cholesterol 28 mg/dL (>40); LDL Cholesterol Calculated 126 mg/dL (<100); Triglycerides 240 mg/dL (<150)
[2024-12-31 23:18] LABS: Immunoglobulin A 197 mg/dL (47-310); Transglutaminase IgA <1.0 U/mL
== END 2024-12-28 10:10 | disposition home or self-care (01) ==
LOC: HO.CHCLDS 10:09
PROVIDERS: Visit Provider Pediatrics
DX: E78.2 Mixed hyperlipidemia (principal); K52.9 Noninfective gastroenteritis and colitis, unspecified
CPT/HCPCS: 36415; 80061; 82784; 86364

== ENCOUNTER 2025-03-29 10:10 | Outpatient (REF) | payer OTHER, SELFPAY ==
--- OUTSIDE RECORDS SUMMARY | 2023-08-04 12:18 | XMS_ITS | Encounter Summary ---
Author Organization Formerly [facility] Address [address] [place] [address] Care Team Providers Care Joy Operator Helper Name Role Phone Jasmin Snyder MD Primary Care Provider + Encounter Details Date Type Department Care Team (Late st Contact Info) Description 08/04/2023 11:18 AM EST Hospital Encounter [facility] [address] [place] [phone] Adele Burt PA NEEDS ADDRESS CT Social History Tobacco Use Types Packs/Day Years Used Date Smoking Tobacco: Never Smokeless Tobacco: Never Comments Unknown Sex and Gender Information Value Date Recorded Sex Assigned at Female 05/06/2023 5:36 PM EDT Legal Sex Female 12:52 PM EDT Gender Identity Female 05/06/2023 5:36 PM EDT Sexual Orientation Heterosexual (straight) 05/06 5:36 PM EDT documented as of this encounter Plan of Treatment Not on file documented as of this encounter Procedures Procedure Name Priority Date/Time Associated Diagnosis Comments XR CHEST 2 VIEWS STAT 08/04/2023 11:2 2 AM EST Bronchitis documented in this encounter Results * XR Chest 2 views (08/04/2023 11:22 AM EST) Anatomical Region Laterality Modality Chest Computed Radiogr aphy 08/04/2023 11:2 3 AM EST Impressions 08/04/2023 11:23 AM EST No acute cardiopulmonary findings. Narrative 08/04/2023 11:23 AM EST EXAM: XR CHEST 2 VIEWS on 08/04/2023 11:18 AM CLINICAL HISTORY: DALLIN QUEEN is a 47 years old patient with a submitted history of Cough and SOB.. ADDITIONAL HISTORY: Acute cough COMPARISONS: 12/31/2018 TECHNIQUE: PA and lateral views FINDINGS: HEART AND MEDIASTINUM: Within normal limits. VASCULARITY: Normal. LUNGS: Clear. PLEURAE: No effusion or pneumothorax. Procedure Note Zoila Meier MD - 08/04/2023 EXAM: XR CHEST 2 VIEWS on 08/04/2023 11:18 AM CLINICAL HISTORY: DALLIN QUEEN is a 47 years old patient with a submitted history of Coughand SOB.. ADDITIONAL HISTORY: Acute cough COMPARISONS: 12/31/2018 TECHNIQUE: PA and lateral views FINDINGS: HEART AND MEDIASTINUM: Within normal limits. VASCULARITY: Normal. LUNGS: Clear. PLEURAE: No effusion or pneumothorax. IMPRESSION: No acute cardiopulmonary findings. Adele HIDALGO IMG DIAGNOSTIC IMAGING ORD ERABLES Final Result documented in this encounter Visit Diagnoses Not on filedocumented in this encounter Care Teams Joy Operator Helper Relationship Specialty Start Date End Date Jasmin Snyder MD [address] [place] [id number] PCP - General 04/01/07 documented as of this encounter
--- OUTSIDE RECORDS SUMMARY | 2025-03-27 23:59 | XMS_ITS | Continuity of Care Document ---
Author Organization [facility] Address [address] [place] [address]- Care Team Providers Care Wind Turbine Blade Repair Technician Name Role Phone Patricia JOHNSON, Flor Whittington Primary Care Physician [phone] [id number] Date(s): 02/25/25 - 03/27/25 [facility] [address] [place] [address]- Encounter Type: Triage Allergies, Adverse Reactions, Alerts Substance Criticality Severity Reaction Reaction Severity Status naproxen Unable to assess criticality Unknown Active penicillins Active Glutens Active amLODIPine Unable to assess criticality Unknown Active Medications leflunomide 20 mg oral tablet 0 Refills, Maintenance, 02/11/25 8:13:00 AM EDT, Partial fill upon patient request if the prescription is for a schedule II opioid drug. Start Date: 02/11/25 Status: Ordered Repeat number: 1 lisinopril 10 mg oral tablet 0 Refill(s), TAKE ONE TABLET (10mg total) BY MOUTH IN THE MORNING, Refills 0, 11/08/24 7:00:00 PM EST, Partial fill upon patient request if the prescription is for a schedule II opioid drug. Start Date: 11/08/24 Status: Ordered Repeat number: 1 omeprazole 20 mg oral delayed release tablet 1 tablet = 20 mg, By Mouth, Daily, # 60 tablet, 0 Refills, Maintenance, 02/11/25 8:56:00 AM EDT, CR Tablet, [facility] # [id number], 160, cm, 02/11/25 8:09:00 EDT, Height Start Date: 02/11/25 Status: Ordered Quantity: 60.0 Unit: tablet Repeat number: 1 Indications: Encounter for screening for malignant neoplasm of colon; Heartburn; Epigastric pain; Suprep Bowel Prep Kit oral liquid See Instructions, see colonoscopy instructions, # 1 kit, 0 Refills, Maintenance, 02/11/25 8:58:00 AM EDT, [facility] # [id number], Partial fill upon patient request if the prescription is for a schedule II opioid drug., see colonoscopy instructions, 160, cm, 02/11/25 8:09:00 EDT, Height Start Date: 02/11/25 Status: Ordered Quantity: 1.0 Unit: kit Repeat number: 1 Indications: Encounter for screening for malignant neoplasm of colon; Heartburn; Epigastric pain; Problem List Condition Confirmation Course Effective Dates Status Health St [facility] Informant Obese class I Confirmed Active Patient Care team information Care Team Personnel Name: Patricia JOHNSON , Flor Whittington Position: [facility] Outreach Member Role: PCP Address: [address] [place], [place] [address] Telecom: Care Team Related Persons Name: YAZMIN CODY Insurance Providers Guarantor name: DALLIN CODY [facility]ly [facility] Information #: 1 Payer: [place] [employer] [facility] Payer Identifier: ALTHEA Member Number: [id number] Group Number: [id number] Subscriber Identifier: [id number] Relationship to Subscriber: spouse Coverage Type: Commercial Managed Care - PPO Coverage Verification Date: ALTHEA Telecom: NA Address:
--- OUTSIDE RECORDS SUMMARY | 2025-03-29 10:30 | XMS_ITS ---
Author Name [facility] Organization Unknown History of Medication Use Medication Directions Dispensed Refills Start Date End Date Stat dexamethasone (DECADRON) injection 4 mg 4 mg, Intravenous, Once as needed, other, nausea, vomiting, Starting on Tue02/22/24 at 1025, For 1 dose, PACU/Phase 1Administer 2nd unless given in the OR if zofran is ineffective and patient continues to be symptomatic. 02/22/2024 active lactated ringers infusion 125 mL/hr, Intravenous, Continuous, Starting on Tue02/22/24 at 0800, Pre-op 02/22/2024 active meperidine (DEMEROL) 25 MG/ML injection 12.5 mg 12.5 mg, Intravenous, Every 30 min PRN, shivering not due to postoperative hypothermia., Starting on Tue02/22/24 at 1025, For 2 doses, PACU/Phase 1May repeat x 1 in 30 minutes. 02/22/2024 active ondansetron (ZOFRAN) injection 4 mg 4 mg, Intravenous, Once as needed, nausea, vomiting, Starting on Tue02/22/24 at 1025, For 1 dose, PACU/Phase 1Administer 1st unless given in OR, then administer dexamethasone 02/22/2024 active oxyCODONE (ROXICODONE) 5 MG immediate [...] 1 mg over three days) 02/22/2024 active rosuvastatin (CRESTOR) tablet 10 mg 09/29/2023 active proMETHAZINE-dextro methorphan (proMETHAZINE-DM) 6.25-15 MG/5ML syrup Take 5 mL by mouth every 4 (four) hours as needed for cough. 12/31/2018 active benzonatate 200 mg capsule TAKE 1 CAPSULE BY MOUTH THREE TIMES A DAY NEEDED FOR COUGH 4 completed dexamethasone 4 mg tablet 8 completed leflunomide 20 mg tablet Take 1 tablet every day by oral route. active prednisone 20 mg tablet TAKE 1 TABLET BY MOUTH 2 TIMES A DAY. WITH FOOD. active azelastine (ASTEPRO) 0.15 % nasal spray spray or apply 1 spray inside Nose. active lisinopril (PRINIVIL,ZeSTRIL) 10 MG tablet Take 10 mg by mouth daily. active Selenium (SELENIMIN PO) Take by mouth daily. active Allergies Allergen Reaction Severity Comment Documented Date Source Statu s PEANUTS ANAPHYLAXIS 02/22/2024 [facility] active AMLODIPINE SWELLING 02/17/2024 [facility] active GLUTEN GI INTOLERANCE/NAUSE A/VOMITING [facility]04[facility]2023 [facility] PENICILLINS HIVES 12/22/2020 [facility] active ALMOND ANAPHYLAXIS [facility] MEDICINAL PRODUCT CONTAINING PENICILLIN AND ACTING ANTIBACTERIAL AGENT (PRODUCT) [facility] NUT - UNSPECIFIED [facility] PRODUCT CONTAINING PENICILLIN (PRODUCT) [facility] TOMATO ALLERGENIC EXTRACT [facility] WHEAT GLUTEN EXTRACT [facility] Problems Problem Status Onset Date Problem Type Date of Resolution Source Abnormal uterine and vaginal bleeding, unspecified active EncounterDiagnosisAct [facility] Other abnormal cytological findings on specimens from cervix uteri active EncounterDiagnosisAct [facility] Asthma active 2018-05-04 ProblemAct [facility] Acid reflux active 2018-05-04 ProblemAct [facility] H Anxiety active 2018-05-04 ProblemAct [facility] Anemia active 2018-05-04 ProblemAct [facility] Bronchitis active [facility] Acute laryngitis active [facility] Immunizations Vaccine Date Source Lot Number Status COVID-19, mRNA, LNP-S, PF, 3 0 mcg/0.3 mL dose, ericka-sucrose 10/09/2021 [facility] [id number] completed COVID-19, mRNA, LNP-S, PF, 30 mcg/0.3 mL dose 01/12/2021 [facility] [id number] completed COVID-19, mRNA, LNP-S, PF, 30 mcg/0.3 mL dose 12/22/2020 [facility] [id number] completed Tdap 08/30/2017 [facility] [id number] completed Encounters Encounter Type Encounter Reason Primary Diagnosis Location Date Ambulatory Atyp squ[facility] cell of undet signfc cyto smr crvx (ASC-US) Atyp squam cell of undet signfc cyto smr crvx ([facility]) [facility] 12/31/2024 Ambulatory Encounter for other specified surgical aftercare Encounter for other specified surgical aftercare [facility] 07/23/2024 Ambulatory Abnormal uterine and vaginal bleeding, unspecified Abnormal uterine and vaginal bleeding, unspecified [facility] 03/06/2024 Ambulatory Abnormal uterine and vaginal bleeding, unspecified Abnormal uterine and vaginal bleeding, [place] [facility] [place] Proc/trtmt not crd out bec pt decision for unsp reasons Proc/trtmt not crd out bec pt decision for unsp reasons [facility] 02/10/2024 Ambulatory Unsp abnormal cytological findings in specimens from vagina Unsp abnormal cytological findings in specimens from vagina [facility] 01/10/2024 Ambulatory [facility] 08/04/2023 Ambulatory Bronchitis, not specified as acute or chronic Bronchitis, not specified as acute or chronic [facility] 08/04/2023 Ambulatory Other specified abnormal uterine and vaginal bleeding [facility] 06/30/2023 Ambulatory Abnormal uterine and vaginal bleeding, unspecified [facility] 06/28/2023 Ambulatory Encntr for community associate exam (general) (routine) w/o abn findings [facility] 06/20/2023 Ambulatory Allergic contact dermatitis due to plants, except food Allergic contact dermatitis due to plants, except food [facility] 05/06/2023 Care Team Organization Name Specialty Phone Email Start Date End [facility] [place] [facility] [place] [facility] [place] [facility] 02/15/2024 03/26/2025 [facility] 02/14/2024 [facility] 06/21/2023 [facility] 06/20/202306/20 [facility] RHETT ZAMORA Primary Care 05/06/2023 11/28/2024 [facility] Jasmin Zamora Primary Care 05/06/2023 05/06/2023 [facility] 07/14/2022 04/30/2024
--- OUTSIDE RECORDS SUMMARY | 2025-03-29 10:30 | XMS_ITS | Clinical Summary ---
Author Organization [facility] Address [address] [place] [address] Care Team Providers Care Sales Floor Manager Name Role Phone Flor Gomez MD Primary Care Provider [phone] Allergies Active Allergy Reactions Criticality Noted Date Comments [place] Anaphylaxis High 02/22/2024 Amlodipine Swelling 02/17/2024 Gluten [...] Take by mouth daily. 0 A ctive [place]-3 Fatty Acids (FISH OIL PO) Take by [...] 66 02/22/2024 11:37 AM EDT Temperature 36.7 C (98.1 F) 02/22/2024 11:27 AM EDT Respiratory Rate 16 02/22/2024 11:37 AM EDT [...] Colon Cancer Screening (Colonoscopy) 12/10/2019 COVID-19 Vaccine ( - 2023-2 5 season) 2024 10/09/2021, 01/12/2021, 12/22/2020 Breast Cancer Screening (Mammogram) 2024 Shingrix-Zoster Vaccine (1 o f 2) 2024 Influenza Vaccine (#1) 2025 09/27/2023 Cervical Cancer Screening (Pap Smear) 02/21/2027 02/22/2024 DTap / Tdap / Td (2 - Td or Tdap) 08/30/2027 08/30/2017 Pneumococcal Vaccine Aged Out No long er eligible based on patient's age to complete this topic RSV Ped < 20 months Aged Out No longe r eligible based on patient's age to complete this topic Advance Directives For more information, please contact: [phone] Latest Code Status on File Code Status Date Activated Date Inactivated Comments Full Code 02/22/2024 7:46 AM 02/22/2024 6:51 PM This code status was ascertained in the following way: discussion with patient . Care Teams Sales Floor Manager Relationship Specialty Start Date End Date Flor Gomez MD [address] [place] [address] PCP - General Pediatrics 02/20/24
--- OUTSIDE RECORDS SUMMARY | 2025-03-29 10:30 | XMS_ITS | Data Portability ---
Author Organization [place] - [facility], 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 Plan of Treatment Reminders Order Date Submit Date Provider Last Modified By Organization Details Last Modified Time Details Appointments None recorded. Lab pap, IG + CT/NG + HR HPV + reflex HPV (16+18) 2024 025 [facility], [address] [place] [address], [id number] 5 06:20:09 pap, IG + HPV 2023 024 [facility], [address] [place] [place] [address], [id number] 4 08:55:00 pap, IG + HPV 2023 024 [facility], [address] [place] [place] [address], [address] 4 08:14:08 Referral None recorded. Procedures None recorded. Surgeries None recorded. Imaging MAMMO, screening, digital, unilateral 2024 025 [facility], [address], [address], [place], [address], 5 16:40:27 US, breast, bilateral, complete 2024 025 [facility], [address], [address], [place], [address], 5 16:40:27 MAMMO, diagnostic , digital, unilateral 2024 025 [facility], [address], [address], [place], [address], 5 16:40:27 Medication Orders None recorded. Patient TargetsNo targets recorded. Patient Instructions Encounter Date Encounter Id Patient Instructions Last Modified By Organization Details Last Modified Time 01/10/2024 [id number] tips to help you stay healthy Not available 01/10/2024 13:03:43 [facility]al healt h screening completed and reviewed with patient. Negative findings. Not available 01/10/2024 13:03:16 02/10/2024 [id number] Behavioral healt h screening completed and reviewed with patient. Negative findings. [email or web address] Not available 02/10/2024 09:36:51 12/31/2024 [id number] tips to help you stay healthy Not available 12/31/2024 15:22:18 Reason for Referral None Reported. Results Created Date Observation Date Name Description Value Unit Range Abnormal Flag Note LastModifiedBy Organization Detail LastModifiedTime 07/23/20 24 07/23/2024 THINP REP PAP TEST [...] TION: NEGAT JOEL FOR INTRA EPITH ELIAL LESIO N OR JATIN AMADOR . Elect paul Lopez d: Marquise Espinal CT (ASCP ) Elect paul Lopez d: Oliver Alvarez, CT( CP) ----- ----- ----- ----- ----- ----- ----- ----- ----- ----- ----- ----- CLINI JOANNE ALVERTOR CANDELARIO N: LMP: NG Clini ojanne Histo ry: NG Biops y Date: NG Speci men Sourc e: Cervi x, Endoc ervix Previ ous Pap Date: NG HPV RESUL TS: HPV mRNA E6/E7 18062 04136 Appro elizabeth: 07/25 Negat joel REF RANGE : Negat joel CPT Codes : 48596 ICD Codes : R87.6 10 Not Available [facility] [address] [place], [address] 07/30/2024 08:55:00 07/23/20 24 07/23/2024 HPV MRNA [...] types from this sourc e Not Available [facility] [address] [place], [address] 07/30/2024 08:55:04 01/01/20 25 12/31/2024 THINP REP PAP TEST (IMAG ER), GC/CT HPV SCREE N, REFLE X HPV 16, 18/45 report Report Final Gynec ologi joanne Cytol ogy Repor t ----- ----- ----- ----- ----- ----- ----- ----- ----- ----- ----- ----- ThinP rep Pap Test, GC/CT HPV Scree n, Refle x HPV Genot ype SPECI MEN ADEQU ACY: SATIS FACTO RY FOR EVALU ATION ; ENDOC ERVIC AL/TR ANSFO RMATI ON ZONE COMPO NENT PRESE NT. INTER PRETA TION: NEGAT JOEL FOR INTRA EPITH ELIAL SHARON Metz OR JATIN AMADOR . Elect paul Lopez d: Maria Luisa Mcknight, CT (ASCP ) ----- ----- ----- ----- ----- ----- ----- ----- ----- ----- ----- ----- CLINI JOANNE INFOR MATIO N: LMP: NG Clini joanne Histo ry: RTN Biops y Date: NG Speci men Sourc e: Cervi x, Endoc ervix Previ ous Pap Date: NG HPV RESUL TS: HPV mRNA E6/E7 64648 Appro elizabeth: 01/01 Negat joel REF RANGE : Negat joel CPT Codes : 16244 ICD Codes : Z01.4 19 Not Available [facility] [address] [place], [address] 01/02/2025 06:20:09 01/01/20 25 12/31/2024 HPV MRNA E6/E7 HPV MRNA E6/E7 Negati [...] types from this sourc e Not Available [facility] [address] [place], [address] 01/02/2025 06:20:12 01/01/2012/31/2024 CHLAM YDIA TRACH OMATI S RNA, TMA chlamydia trachomatis RNA, tma Negati ve negati ve The perfo rmanc e of endoc ervic al, vagin al, and male ureth ral swab speci mens, male and femal e urine speci mens, and Prese rvCyt Solut ion liqui d Pap speci mens has not been evalu ated in adole scent s less than 16 years of age. Not Available [facility] [address] [place], [address] 01/02/2025 06:20:15 01/01/20 25 12/31/2024 NEISS ERIA GONOR RHOEA E RNA, TMA neisseria gonorrhoeae RNA, tma Negati ve negati ve The perfo rmanc e of endoc ervic al, vagin al, and male ureth ral swab speci mens, male and femal e urine speci mens, and Prese rvCyt Solut ion liqui d Pap speci mens has not been evalu ated in adole scent s less than 16 years of age. Not Available [facility] [address] [place], [address] 01/02/2025 06:20:15 01/13/20 24 01/13/2024 MAMMO , scree sulema, digit al, bilat eral, w/ CAD No observ ation record ed. [email or web address] [facility] [address], [place], [address], 01/17/2024 09:33:47 01/26/20 24 01/26/2024 MAMMO , diagn ostic , digit al, unila teral No observ ation record ed. [email or web address] [facility] [address], [place], [address], 01/30/2024 11:18:13 08/06/20 24 08/06/2021 MAMMO , diagn ostic , tomos ynthe sis, unila teral No observ ation record ed. [facility] [address], [place], [address], 08/07/2024 01:36:07 09/06/20 24 08/06/2024 MAMMO , diagn ostic , digit al, unila teral No observ ation record ed. [email or web address] [facility] [address], [place], [address], 09/13/2024 11:39:42 02/28/20 25 02/27/2025 MAMMO , scree sulema, tomos ynthe sis, bilat eral No observ ation record ed. [facility] [address], [place], [address], 03/01/2025 11:14:48 Result Notes None recorded. Problems Name Problem SNOMED Code Status Onset Date Resolution Date Notes Provider Name and Address Organization Details Recorded Time Asthma 438353689 Active 018 Ann Peña null, [facility] 8 14:33:59 Acid reflux 891014068 Active 018 Ann Peña null, [facility] 8 14:34:06 Anxiety 01394947 Active 018 Ann Peña null, [facility] 8 14:34:17 Anemia 597885042 Active 018 Ann Peña null, [facility] 8 14:34:52 Problem Notes None recorded. Procedures Surgical History Date Name Laterality Status Provider Name and Address Organization Details Recorded Time 06/30/20 Colposcopy Procedure Note completed KASSANDRA DANIELLE MD 175 [facility], [address] [place] [address], [phone], [facility] 06/30/2023 11:20:12 06/30/20 Endometrial Biopsy Procedure Note completed KASSANDRA DANIELLE MD 175 [facility], [address] [place], [address], [facility] 06/30/2023 11:21:21 06/20/20 Cervical Polypectomy Procedure Note completed KASSANDRA DANIELLE MD [address] [facility], [address] [place], [address], [facility] 06/20/2023 21:42:53 06/20/20 Date of Last Pap Smear completed Sanjiv Norman [facility] 06/20/2023 13:15:20 extraction of wisdom tooth completed KASSANDRA DANIELLE MD [address], [address], [facility] 06/20/2023 21:30:45 Hysteroscopy completed KASSANDRA DANIELLE MD [address], [address], [facility] 07/23/2024 15:01:50 Imaging Results None recorded. Procedure Notes None recorded. Medical Equipment None Reported. Allergies Allergen ID Allergen Name Allergen Category Reaction Reaction Severity Criticality Documentation Date Start Date Code Code System Note Provider Name and Address Organization Details Recorded Time 7503186 Product containin g penicilli n (product) medicatio n Not available Not available Not available 05/04/2018 12887 8001 [facility]ED [facility] 14:[facility]32 7796506 wheat gluten extract food Not available Not available Not available 05/04/2018 78104 81 RxNorm Ann Peña null, [facility] 8 14:31:38 6205700 nut - unspecifi ed food Not available Not available Not available 05/04/2018 36940 UNK Ann Peña null, [facility] 8 14:31:48 0660197 tomato allergeni c extract food Not available Not available Not available 05/04/2018 81732 9 RxNorm Ann Peña null, [facility] 8 14:31:53 0643400 amlodipin e medicatio n Not available Not available Not available 06/20/2023 84891 RxNorm Sanjiv Norman [facility], [facility] 3 13:13:03 Medications Name Sig Start [...] MOUTH 2 TIMES A DAY. WITH FOOD. 12/31 completed Not Available Not Available Not Available leflunomide 20 mg tablet Take 1 tablet every day by oral route. 2024 active Not Available Not Available Not Avai lable dexamethaso ne 4 mg tablet 05/04 completed Not Available Not Available Not Available lisinopril 10 mg tablet 2024 active Not Available Not Available Not Avai lable Provera 10 mg tablet Take 1 tablet every day by oral route for 10 days. 12/31 completed Not Available Not Available Not Available albuterol sulfate HFA 90 mcg/actuati on aerosol inhaler INHALE 2 PUFFS EVERY 4 HOURS NEEDED FOR WHEEZING OR SHORTNESS OF BREATH 02/09 completed Not Available Not Available Not Available rosuvastati n 10 mg tablet 12/31 completed Not Available Not Available Not Available rosuvastati n 20 mg tablet Take 1 mg every day by oral route. 02/09 completed Not Available Not Available Not Available cyanocobala min (vitamin B-12) 06/17 completed Not Available Not Available Not Available Vitamin D3 2024 active Not Available Not Available Not Avai lable multivitami n 2024 active Not Available Not Available Not Avai lable Flonase Allergy Relief 06/17 completed Not Available Not Available Not Available Vitals Date Recorded Body height Body mass index (BMI) Body weight Systolic And Diastolic Provider Name and Address Organization Details Last Updated DateTime 12/31/2024 161.29 cm 31.6 kg/m2 96153.22 g 120/72 mm[Hg] Sanjiv Norman [facility] 12/31/2024 14:53:06 Date Recorded Body height Body mass index (BMI) Body weight Systolic And Diastolic Provider Name and Address Organization Details Last Updated DateTime 01/10/2024 161.29 cm 31.6 kg/m2 52508.22 g 110/82 mm[Hg] Kayla Valentin [facility] 01/10/2024 08:32:10 Date Recorded Body height Body mass index (BMI) Body weight Systolic And Diastolic Provider Name and Address Organization Details Last Updated DateTime 02/10/2024 161.29 cm 32.3 kg/m2 80756.59 g 118/72 mm[Hg] Fanywilda Emerson [facility] 02/10/2024 14:36:51 Date Recorded Body height Body mass index (BMI) Body weight Systolic And Diastolic Provider Name and Address Organization Details Last Updated DateTime 03/06/2024 161.29 cm 31.4 kg/m2 23492.63 g 120/76 mm[Hg] Kayla Valentin [facility] 03/06/2024 13:25:27 Date Recorded Body height Body mass index (BMI) Body weight Systolic And Diastolic Provider Name and Address Organization Details Last Updated DateTime 07/23/2024 161.29 cm 33.9 kg/m2 61966.72 g 122/74 mm[Hg] Rush Alvaradoro [facility] 07/23/2024 14:30:41 Social History Question Answer Notes LastModified by Organizat ion Details LastModified Time Tobacco Smoking Status Never Smoker Ann saez, [facility] 05/04/2018 14:36:38 Is Blood Transfusion Acceptable In An Emergency? No Unable To Accept Transfustions - JW Information not available 05/04/2018 Have There Been [...] not available 05/04/2018 Drug Use? No Information no t available 05/04/2018 Do You Feel Safe At Home? Yes Information not available 05/04/2018 What Was The Date Of Your Most Recent Tobacco Screening? 5 Information not available 12/31/2024 How Many Children Do You Have? 2 Information not available 05/04/2018 Do You Use Protection During Sex? Always Information not available 05/04/2018 Are You Sexually Active? Yes Information not available 06/20/2023 How Much Tobacco Do You Smoke? No Information not available 05/04/2018 Sex: Unknown Functional Status Question Answer Note LastModified by Organizat ion Details LastModified Time What is your level of alcohol consumption? 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 Moderate 3-5 [...] available 2017 14:36:09 Mother Myocardial infarction h/o SC x 2 Not available 06/20/2023 21:31:16 Mother Atrial fibrillation Not available 20:12:21 Father Atrial fibrillation Not available 14:36:22 Maternal Grandmother Atrial fibrillation Not available 18:17:38 Maternal Grandmother Diabetes mellitus Not available 05/05 18:18:24 Maternal Grandmother Congenital heart disease Not available 05/05 18:18:38 Maternal Grandfather Hypertensive disorder Not available 05/05 18:19:06 Maternal Grandfather Cerebrovascu lar accident Not available 18:19:17 Paternal Grandfather Malignant neoplasm of prostate Not available 05/05 18:19:53 Unspecified Relation Malignant tumor of breast M Cousin , female Not available 05/05/2018 18:20:22 Medical History Condition Response Other N *No Diseases or Conditions N Breast Cancer N Blood clots N Colon cancer N Benign breast disease N Depression N Lung Disease N Defects or Inherited Disease N Anesthesia Complications N Headaches/Migraines Y Have you ever been on isolation N Anxiety Disorder Y Arthritis Y HSV N Infertility N Abnormal pap Y Interstitial Cystitis N Acid Reflux (GERD) Y Cancer N Stroke N Endometriosis N Fibromyalgia N Spina Bifida N HIV N Heart Problems N Sexual Dysfunction N Autoimmune disorder N Thyroid Problems Y Kidney or Bladder Problems Y GI Problems N Eating Disorder [...] Mammogram Breast Biopsy N Date of LMP 09/03/2024 [facility] Biopsy N IPV Screen Done 12/31/2024 Post Menopausal Bleeding STIs/STDs N PID N [...] Immunizations Vaccine Type Date Status Note Provider Nam e and Address Organization Details Recorded Time COVID-19, mRNA, LNP-S, PF, 30 mcg/0.3 mL dose 12/22/2020 completed Sanjiv Norman null, [place] - [facility] 06/20/2023 13:12:43 COVID-19, mRNA, LNP-S, PF, 30 mcg/0.3 mL dose 01/12/2021 completed Sanjiv Norman null, [place] [facility] 06/20/2023 13:12:43 COVID-19, mRNA, LNP-S, PF, 30 mcg/0.3 mL dose, ericka-sucrose 10/09/2021 completed Sanjiv Norman null, [facility] 06/20/2023 13:12:43 Tdap 08/30/2017 completed Sanjiv Norman null, 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 Advised pt to have initial eval w/ USN, then consider further tx options pending findings. Pt agreeable to schedule USN in office. [id number] KASSANDRA DANIELLE MD [facility] [address] [place] [address] 06/20/2023 13:09:15 06/21/2023 09:51:23 Abnormal uterine bleeding 2232109511 9100 N93.9 47 yo w/ h/o menorrhagi [...] pt agreeable to begin eval w/ USN. [id number] KASSANDRA DANIELLE MD [facility] [address] [place] [address] 06/30/2023 10:32:56 06/30/2023 14:44:44 Abnormal vaginal Papanicolaou smear 311691826 R87.629 47 yo returns for further eval of AUB & pap w/ MILAGROS/HPV negative. See HPI for summary of path & USN findings thus far. Colpo/ECC/ bx x 2 completed, also EBx. Pt had discomfort during procedure, near syncope post-proce dure. Await path--cons ider tx options pending results. Reviewed options IN BRIEF w/ pt. 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 Depression screening 171 550895 Z13.31 Completed, results negative [id number] KASSANDRA DANIELLE MD [facility] [address] [address] 02/10/2024 13:58:37 02/21/2024 10:52:02 Pre-surgery evaluation 664979035 Z01.818 48 yo presents for preop visit [...] of undetermined significance on cervical Papanicolaou smear 784302838 R87.610 Pt reported h/o abnl pap in [...] Will plan pap during current OR procedure. [id number] KASSANDRA DANIELLE MD [facility] [address] [place] [address] 03/06/2024 13:07:32 03/07/2024 09:01:08 Postoperative visit 709656098 Z48.89 Pt doing well, no sig post-op [...] g landular cells on cervical Papanicolaou smear 584299830 R87.619 Pt had prior eval w/ pap [...] & HPV cotesting in ~ 4-6 mo. [id number] KASSANDRA DANIELLE MD [facility] [address] [place] [address] 07/23/2024 14:15:51 07/23/2024 15:08:57 Atypical squamous cells of undetermined significance on cervical Papanicolaou smear 339790198 R87.610 Pt reported h/o abnl pap in [...] completed today. Plan further eval pending results. [id number] KASSANDRA DANIELLE MD [facility] [place] [address] 12/31/2024 14:40:49 12/31/2024 15:37:04 Atypical squamous cells of undetermined significance on cervical Papanicolaou smear 822456550 R87.610 Pt reported h/o abnl pap in 2015 w/ prior provider; pt apparently had colpo at that time, w/ reportedly nl results.Pt had eval w/ pap 04/29, results NILM/HPV negative.P t had pap 07/04 revealing MILAGROS/HPV positive; colpo/bx/E [...] was not completed. Pap w/ mandatory HPV WAS completed 08/05, w/ negative results.Pe r current ASCCP guidelines , pap & mandatory HPV repeated today--daphnie l plan further surveillan ce pending results. Provision of application integration engineer declined 941907580 Z53.20 Food Counter Worker declined, pt declined to have add'l people in room for visit & exam. Gynecologi c examination 80330200 Z01.419 Nl ASSOCIATE STORE MANAGER exam except as noted Pap done w/ mandatory HPV Check bilateral MMG as scheduled in -03/06--re iterated w/ pt that this should be a BILATERAL study, which would include F/U of calcificat ions seen in R breastChec k bilateral screening USN as scheduled in 04/05Encour aged pt to complete scheduled GI w/uRTO q 1 yr or prn Depression screening declined 677934765 Z53.9 Screening mammography 24 328815 Z12.31 Mammograph ic microcalcification of breast 3265139554 9107 R92.0 Heterogene ously dense breast composition 533639376 R92.333 Health Concerns Section Related Observation LastModified by Organization Detai ls LastModified Time None Recorded Concern Status LastModified by Organization Details LastModified Time None Recorded Advance Directives Directive None Recorded Payers Insurance Date Sequence Insurance Name Policy Number Policy Contreras Covered Member ID Contreras Member ID Guarantor Name 12/26/2024 1 [employer] (PPO) Bonita Queen [id number] Bonita Queen 01/07/2025 1 [facility] - ALLIED - CIGNA (PPO) Bonita Bret [id number] Bonita Bret 01/11/2024 PAYMENT PLAN Bonita Queen 12/26/2024 2 ALLIED (PPO) Bonita Bret [id number] Bonita Queen 01/11/2024 PAYMENT PLAN Bonita Bret 12/26/2024 1 [facility] [id number] Bonita Queen [id number] Bonita Queen 06/20/2023 1 [place] [id number] Keenan Queen [id number] Bonita Queen Notes Date Note Type Note Provider Name and Address Organization Details Recorded Time 01/10/2024 text/html application integration engineer declin ed 48 yo presents for annual [...] had recent MMG, ? last 2020. KASSANDRA DANIELLE MD [address] [place] [address], [address], [place], [address], [place] [facility] 01/10/2024 13:03:46 02/10/2024 text/html 48 yo presents [...] to proceed w/ previously recommended surgery. KASSANDRA DANIELLE MD 175 [facility], [address] [place], [address], [facility] 02/18/2024 22:59:32 03/06/2024 text/html 48 yo presents [...] of OR.Pt denies F/C/UTI or sx's. KASSANDRA DANIELLE MD [address] [facility], [address] [place] [address], [address], [facility] 03/06/2024 18:21:06 07/23/2024 text/html 48 yo presents f or F/U of MILAGROS previously seen on pap. Pt had eval w/ pap at time of HSC/D&C in 03/05. However, pap did not include HPV co-testing. Pt today presents for F/U pap. KASSANDRA DANIELLE MD [address] [place] [address], [address] [place] [address], [address], [facility] 07/23/2024 15:05:30 12/31/2024 text/html 49 yo presents for annual exam. Pt reports menses have been spacing out since time of HSC/D&C in 03/05. Pt currently reports she had LMP in 09/04, has not had any VB since that time.Pt denies current /UTI sx's.Pt had MMG 02/02 w/ nl findings in L breast, R breast w/ new calcifications; F/U R Dx MMG in 08/05 showed stable calcifications. Density cat C noted, & screening USN was ordered but never completed.Pt states today she has MMG scheduled for ~ -03/06 & screening bilateral USN in 04/05.Pt has not had colonoscopy, but has had recent sig GI issues (?reflux & diarrhea), has appt for probably endoscopy & colonoscopy w/ GI. KASSANDRA DANIELLE MD [address] [place] [address], [address] Floor, [place], [address], [place] [facility] 12/31/2024 15:22:21 OBGyn Episode Ob Episode Information Episode Created Date Number of Fetuses Patient Bloodtype Patient rh Status Prepregnancy Weight lbs Domestic Partner Domestic Partner Phone Father Name Fabrication Engineer Status 05/04/20 18 1 CLOSED Fetus Data First Name Last Name Admitted to NICU Weight (g) Sex Living Outcome Pediatric Complications Fetus ID Race Codes Race Delivery Type 4507.34 3704 M Full Term [id number] Vaginal Delivery Iban Calculation Initial Iban Date [...] Domestic Partner Domestic Partner Phone Father Name Fabrication Engineer Status 05/04/20 18 1 CLOSED Fetus Data First Name Last Name Admitted to NICU Weight (g) Sex Living Outcome Pediatric Complications Fetus ID Race Codes Race Delivery Type 3061.74 6 F Prematur e [id number] Vaginal Delivery Iban Calculation Initial Iban Date [...]
--- OUTSIDE RECORDS SUMMARY | 2025-03-29 10:30 | XMS_ITS | Clinical Summary ---
Author Organization [facility] Address [place] [address] Phone Care Team Providers Care Lunchroom Monitor Name Role Phone Flor Gomez MD Primary Care Provider Allergies Active Allergy Reactions Criticality Noted Date Comments Amlodipine Swelling 05/31/2023 Gluten Protein GI Upset 05/31/2023 Meloxicam Other (See Comments) 11/20/2024 menorrhagia Penicillins Hives 05/31/2023 Pollen Extracts 05/31/2023 Rosuvastatin Myalgia 11/20/2024 Medications azelastine (ASTEPRO) 205.5 mcg (0.15 %) [place] 205.5 mcg by Each Nare route daily. Active Medication-López e Text daily. Adrenal C Formula Active selenium 50 mcg Tab Take 50 mcg by mouth daily. Active MULTIVITAMIN ORAL Take by mouth daily. Active cholecalcifero l (VITAMIN D3) 25 MCG (1,000 unit) tablet Take 1,000 Units by mouth daily. Active ascorbic acid (VITAMIN C ORAL) Take 1,000 mg by mouth daily. Active acetaminophen (TYLENOL) 650 MG CR tablet Take 2 tablets by mouth every 8 (eight) hours as needed. Active lisinopril (PRINIVIL,ZEST RIL) 10 MG tablet Take 10 mg by mouth daily. Active omega 9-wrh-exz-fish oil 120-180-500 mg Cap Take 500 mg by mouth. 09/28/19 24 Active naproxen (NAPROSYN) 500 MG tabletIndicati ons:Seronegati ve rheumatoid arthritis Take 1 tablet (500 mg total) by mouth 2 (two) times a day with meals. As needed for joint pain; do not combine with ibuprofen 60 tablet 11/21/19 Active leflunomide (ARAVA) 20 MG tablet Take 1 tablet by mouth daily. 90 tablet 03/06/20 25 Active leflunomide (ARAVA) 20 MG tabletIndicati ons:Rheumatoid arthritis of multiple sites with negative rheumatoid factor Take 1 tablet (20 mg total) by mouth daily. 90 tablet 1 08/13/20 24 025 Discontinued Active Problems Problem Noted Date Diagnosed Date Encounter for monitoring leflunomide therapy 07/2025 Assessment & Plan (11/20/2024 11:39 AM EDT): No symptomatic AEs of leflunomide and no excessive alcohol; routine monitoring labs q3-4 months. Seronegative rheumatoid arthritis 06/09/2023 Overview (11/20/2024): Leflunomide c. 2021 to current; no other DMARDs Assessment & Plan (11/20/2024 11:40 AM EDT): Overall low disease activity by hx and exam; routine activities remain quite restricted due to finger joint pain and I suspect there is a significant non-inflammatory component. Upper limit of normal for ESR in a woman is generally considered to be half the patient's age plus ten though cut-off may vary by lab; ESR must be interpreted within entire clinical context. Trial naproxen given h/o meloxicam-induced menorrhagia. Labs and plain films today; can discuss addition of hydroxychloroquine versus biologic agent pending response to naproxen as well as lab and x-ray findings. D/w patient that, while [untreated or highly active] rheumatoid arthritis is considered a risk factor for CV disease, it does not directly result in elevated lipid levels. Assessment & Plan (02/01/2024 8:41 AM EDT): Seronegative rheumatoid arthritis well-controlled on daily leflunomide. She has no active synovitis or swelling. Continue with same dose. Sent her for some labs today. Assessment & Plan (11/02/2023 3:13 PM EST): Seronegative rheumatoid arthritis well-controlled on daily leflunomide with no active synovitis. Continue with same dose. Will send her for some lab work today. Assessment & Plan (06/09/2023 9:24 AM EDT): Seronegative rheumatoid arthritis currently well controlled on daily leflunomide with minimal stiffness and no swelling. Sent her for labs today. Also sent in a 90-day refill. Primary osteoarthritis involving multiple joints 06/09/2023 Assessment & Plan (02/01/2024 8:42 AM EDT): Osteoarthritis in multiple joints with no swelling. She can safely take Tylenol 650 mg as needed. Assessment & Plan (11/02/2023 3:14 PM EST): Osteoarthritis in multiple joints with chronic large joint pain as well as occasionally painful IP nodes in many fingers. She can continue with Tylenol 650 mg as needed. Assessment & Plan (06/09/2023 9:25 AM EDT): Osteoarthritis in multiple joints with puffiness and stiffness in the hands, especially in colder weather. She takes Tylenol 650 mg, 2 tablets as needed. She stopped taking anti-inflammatories due to the dysfunctional uterine bleeding. Encounters Date Type Department Care Team Description 03/06/2025 Orders Only [facility] Rheumatology [address] [place] [address] Christy Donohue MA Rheumatoid arthritis of multiple sites with negative rheumatoid factor; Encounter for monitoring leflunomide therapy 03/01/2025 Refill [facility] Rheumatology [address] [place] [address] Shaunna Layne MD Medication Refill from Last 3 Months Family History Medical History Relation Comments Asthma Daughter Atrial fibrillation Father ? Thyroid disease Father ? Asthma Mother Diabetes Mother Heart attack Mother Hypothyroidism Paternal Grandmother Bipolar disorder Sister Relation Status Comments Daughter Father Alive Mother Alive Paternal Grandmother Sister Social History Tobacco Use Types Packs/Day Years Used Date Smoking Tobacco: Never Smokeless Tobacco: Never Tobacco Cessation:Counseling Given: Not Answered Alcohol Use Standard Drinks/Week Comments Yes 0 (1 standard drink = 0.6 oz pur e alcohol) 3 drinks a year Education Answer Date Recorded Are you interested in more education? Not on antonia e 05/02/2023 Are you concerned about learning? Not on file 05/02/2023 No 05/02/2023 No 05/02/2023 Digital Access Answer Date Recorded No 05/02/2023 No 05/02/2023 Reliable internet access at home? Not on file 05/02/2023 Device with a working camera? Not on file Comments Unknown Sex and Gender Information Value Date Recorded Sex Assigned at Female 06/09/2023 8:05 AM EDT Legal Sex Female 10:37 AM EDT Gender Identity Female 06/09/2023 8:05 AM EDT Sexual Orientation Straight 06/09/2023 8: 05 AM EDT Last Filed Vital Signs Vital Sign Reading Time Taken Comments Blood Pressure 124/78 11/20/2024 11:04 AM EDT Pulse 100 11/20/2024 11:04 AM EDT Temperature - - Respiratory Rate - - Oxygen Saturation 96% 11/20/2024 11:04 AM EDT Inhaled Oxygen Concentration - - Weight 82.6 kg (182 lb) 11/20/2024 11:04 AM EDT Height 162.6 cm (5' 4.02 ) 11/20/2024 11:04 AM E DT Body Mass Index 31.22 11/20/2024 11:04 AM EDT Plan of Treatment Upcoming Encounters Date Type Department Care Team (Late st Contact Info) Description 06/26/2025 4:10 PM EDT Office Visit [facility] Rheumatology [address] [place] [address] Brittney Quezada MD, MPH [address], [address] [place] [address] [email or web address] Health Maintenance Due Date Last Done Comments COVID-19 VACCINE (#1) 12/10/1979 DEPRESSION SCREENING 1986 HEPATITIS C SCREENING 1992 HIV ONE-TIME SCREENING (18-65 YEARS) 1992 PNEUMOCOCCAL VACCINES (50+ years) (1 of 2 - PCV) 1993 ZOSTER VACCINES (1 of 2) 1993 MAMMOGRAM 2014 COLOGUARD 12/10/2019 COLONOSCOPY 12/10/2019 COLORECTAL CANCER SCREENING 12/10/2019 FIT TEST 12/10/2019 FOBT 12/10/2019 SIGMOIDOSCOPY 12/10/2019 VIRTUAL COLONOSCOPY 12/10/2019 POTASSIUM LEVEL 11/20/2025 11/20/2024, 05/2 10/2023, 10/03/2023, Additional history exists CREATININE LEVEL 03/05/2026 03/05/2025, 07/2025, 08/10/2024, Additional history exists PAP SMEAR 02/21/2027 02/22/2024 Adult Td,Tdap Booster 08/30/2027 08/30/2017 SCREENING FOR DIABETES 11/21/2027 11/20/2024 LIPID PANEL 10/04/2029 10/04/2024, 09/27/2023 SMOKING STATUS SCREENING (Once After 26 Yrs) Completed 11/20/2024 HEPATITIS A VACCINES Aged Out No long er eligible based on patient's age to complete this topic HIB VACCINES Aged Out No longer eligi ble based on patient's age to complete this topic MENINGOCOCCAL VACCINES (ACWY) Aged Out No longer eligible based on patient's age to complete this topic MENINGOCOCCAL VACCINES (B) Aged Out N o longer eligible based on patient's age to complete this topic Medical Devices Not on file Procedures Procedure Name Priority Date/Time Associated Diagnosis Comments SEDIMENTATION RATE (ESR) Routine 03/05/2025 10:54 AM EDT Rheumatoid arthritis of multiple sites with negative rheumatoid factor CBC AND DIFFERENTIAL Routine 03/05/2025 10:53 AM EDT Rheumatoid arthritis of multiple sites with negative rheumatoid factor Encounter for monitoring leflunomide therapy COMPREHENSIVE METABOLIC PANEL Routine 03/05/2025 10:53 AM EDT Encounter for monitoring leflunomide therapy COMPREHENSIVE METABOLIC PANEL Routine 11/20/2024 11:43 AM EDT Encounter for monitoring leflunomide therapy from Last 3 Months or Most Recently Relevant to Health Maintenance Results * Sedimentation rate (ESR) (03/05/2025 10:54 AM EDT) Blood Brittney Quezada MD, MPH LAB BLOOD ORDERABLES Fin al Result Performing Organization Address [facility] Co de Phone Number EXTERNAL NON-INTERFACED REF LAB * CBC and differential (03/05/2025 10:53 AM EDT) Blood Brittney Quezada MD, MPH LAB BLOOD ORDERABLES Fin al Result Performing Organization Address [facility] de Phone Number EXTERNAL NON-INTERFACED REF LAB * Comprehensive metabolic panel (03/05/2025 10:53 AM EDT) Only the most recent of2 resultswithin the time period is included. Blood Brittney Quezada MD, MPH LAB BLOOD ORDERABLES Fin al Result Performing Organization Address [facility] de Phone Number EXTERNAL NON-INTERFACED REF LAB from Last 3 Months or Most Recently Relevant to Health Maintenance Insurance [facility] Address: [facility] [address] [place] [address] CIGNA TPA CIGNA TPA CIGNA TPA CIGNA TPA CIGNA TPA Care Teams Lunchroom Monitor Relationship Specialty Start Date End Date Flor Gomez MD [address] [place] [address] PCP - General Internal Medicine 10/03/23 Additional Source Comments The information contained in this document represents components of the legal health record. It is not the complete legal health record.[facility]
--- OUTSIDE RECORDS SUMMARY | 2025-03-29 10:30 | XMS_ITS | Encounter Summary ---
Author Organization [employer] Address [address] [place] [address] [address] [place] [address] Care Team Providers Care Channel Marketing Manager Name Role Phone Flor Gomez MD Primary Care Provider [phone] Encounter Details Date Type Department Care Team (Latest Contact Info) Description 03/29/2025 Travel Social History Tobacco Use Types Packs/Day [...] Orientation Straight 08/30/2023 3: 24 PM EST documented as of this encounter Plan of Treatment Upcoming Encounters Date Type Department Care Team (Late st Contact Info) Description 05/09/2025 3:00 PM EDT Clinical Support [facility] [address] [place] [address] documented as of this encounter Visit Diagnoses Not on filedocumented in this encounter Care Teams Channel Marketing Manager Relationship Specialty Start Date End Date Flor Gomez MD [address] [place] [address] PCP - General Internal Medicine 09/27/23 documented as of this encounter
--- OUTSIDE RECORDS SUMMARY | 2025-03-29 10:30 | XMS_ITS | Clinical Summary ---
Author Organization [facility] it Address [address] [place] [address] Care Team Providers Care Professional Tutor Name Role Phone Flor Gomez MD Primary Care Provider [phone] Immunizations Name Administration Dates Next Due Pfizer SARS-CoV-2 COVID-19, mRNA, LNP-S, preservative free 10/09/2021 Surgical History Surgery Date Site/Laterality Comments WISDOM TOOTH EXTRACTION PROCEDURE:WISDOM TOOTH EXTRACTION HYSTEROSCOPY 02/22/2024 N/A PROCEDURE:HYSTEROSCOPY;COMMENT:Proc edure: HYSTEROSCOPY/DILATION/CURETTAGE/ PAP SMEAR; Surgeon: Barbra Abdi MD; Location: [facility]; Service: Gynecology; Laterality: N/A; Medical [...] 01/12/2021, 12/22/2020 Colorectal Cancer Screening: Colonoscopy 06/25/2024 HIV Screening 06/25/2024 Hepatitis C Screening 06/25/2024 Social Influencers of Health Screening 06/25/2024 Depression Screening 09/12/2024 Pneumococcal Vaccine: 50+ Years (1 of 1 - PCV) 2024 Zoster Vaccines (1 of 2) 2024 Influenza Vaccine (#1) 2025 Cervical Cancer Screening: P ap Smear [...] AM EDT) Case Results Patient Name: DALLIN QUEEN MR#: [id number] Collected Date: 02/22/2024 Reported Date: 02/28/2024 Specimen #[id number] Final Diagnosis Satisfactory for evaluation. Endocervical transformation zone component present. Negative for Intraepithelial Lesion or Malignancy. Clinical Diagnosis N93.9 R87.618 Source: A: ThinPrep Imaged Pap Cervical-DX Electronically Signed Out By JENARO Hull(ASCP) Note: The Pap test is a screening test with an inherent false negative rate. Automated prescreening of all liquid based specimens is performed by the ThinPrep Imaging System unless otherwise stated. Test Performed by: [address] [address] Luna Foster M.D., Director HISTORICAL TESTING LAB RESULTING AGENCY 02/22/2024 Barbra Abdi MD LAB CYTOLOGY ORDERABLES Edit ed Result - Final HISTORICAL TESTING LAB RESULTING AGENCY from Last 3 Months or Most Recently Relevant to Health Maintenance Care Teams Professional Tutor Relationship Specialty Start Date End Date Flor Gomez MD [address] [place] [phone] PCP - General 02/20/24
[2025-03-29 14:10] LABS: Hemoglobin A1C 125.4186 umol/L; Total Hemoglobin (HGBA1C) 3447.0772 umol/L
== END 2025-03-29 10:11 | disposition home or self-care (01) ==
LOC: HO.CHCLDS 10:10
PROVIDERS: Visit Provider Pediatrics
DX: R73.01 Impaired fasting glucose (principal); M06.09 Rheumatoid arthritis without rheumatoid factor, multiple sites
CPT/HCPCS: 36415; 82306; 83036